=== PATIENT | male | born 1970 | race Two or more races ===

== ENCOUNTER 2016-12-07 18:18 | Inpatient (IN) | payer MEDICAID ==
[~2016-12-07] VITALS: Ht 170.2 cm; Wt 76.8 kg
[~2016-12-07 18:18] MED LIST: ARIP15TA6 PO; B-CO-5 PO; CALC667C PO; CINA30TA2 PO; FURO40TA4 PO; LIS5T PO; METO-169 PO; PAR20T PO; ZOLP10TA6 PO
[2016-12-07 19:38] LABS: Basophils # (auto) 0 uL; Basophils % (auto) 0.2 % (0.0-2.0); DEFINITIVE VIEW TRANSMISSION; Eosinophils # (auto) 0.1 uL; Eosinophils % (auto) 1.4 % (0.0-7.0); Hematocrit 25.5 % (41.0-53.0); Hemoglobin 8.1 g/dL (13.5-17.5); Lymphocytes # (auto) 0.7 uL; Mean Corpuscular Hemoglobin 29.6 pg (28.0-32.0); Mean Corpuscular Volume 92.7 fL (80.0-100.0); Mean Platelet Volume 6.7 fL (7.4-10.4); Monocytes # (auto) 0.4 uL; Monocytes % (auto) 4.5 % (0.0-12.0); Neutrophils # (auto) 7.7 uL; Neutrophils % (auto) 85.9 % (37.0-80.0); Platelet Count (auto) 453 10^3/uL (140-450); Red Cell Distribution Width 18.3 % (11.6-16.0)
[2016-12-07 20:03] LABS: Albumin 3.3 g/dL (3.4-5.0); Calcium 8.7 mg/dL (8.5-10.1); Potassium 4.4 mmol/L (3.5-5.1)
[2016-12-07 21:16] LABS: Bilirubin, Total 0.6 mg/dL (0.2-1.0); Total Protein 7.5 g/dL (6.4-8.2)
[2016-12-08 03:16] LABS: Urine Bilirubin Negative (Negative); Urine Blood TRACE /uL (Negative); Urine Color Yellow (Yellow); Urine Ketone Negative (Negative); Urine Nitrite Negative (Negative); Urine RBC 5 /hpf (0 - 3); Urine Urobilinogen Normal (Negative); Urine pH 8.5 (5.0-8.0)
[2016-12-08 03:17] LABS: Urine Glucose 1+ mg/dL (Normal)
[2016-12-08] MEDS ORDERED: cloNIDine HCL 0.1 MG TAB PO ONE (03:30)
[2016-12-08] MEDS ORDERED: SODIUM CHLORIDE 0.9% 1,000 ML IV ONE (03:30)
[2016-12-08 04:21] LABS: Partial Thromboplastin Time 29.9 sec (22.64-33.71); Prothrombin Time 12.3 sec (9.37-12.3)
[2016-12-08 04:23] LABS: INR 1.19 (0.9-1.15)
[2016-12-08] MEDS ORDERED: FUROSEMIDE 20 MG/2 ML VIAL IV ONE (04:30)
[2016-12-08 05:19] LABS: Temperature: 21.9 C (20.0-25.0)
[2016-12-08] MEDS ORDERED: ACETAMINOPHEN 325 MG TAB PO PRN (07:15)
[2016-12-08] MEDS ORDERED: ONDANSETRON HCL 4 MG/2 ML VIAL IV PRN (07:15)
[2016-12-08] MEDS: CALCIUM ACETATE 667 MG CAP PO SCH ×3 (09:16→18:24)
[2016-12-08] MEDS: METOPROLOL SUCCINATE XL 50 MG TAB PO SCH (10:00)
[2016-12-08] MEDS: LISINOPRIL 10 MG TAB PO SCH (10:00)
[2016-12-08] MEDS: PARoxetine 20 MG TAB PO SCH (10:00)
[2016-12-08] MEDS: ENOXAPARIN SOD 30 MG/0.3 ML SYRINGE SC SCH (10:00)
[2016-12-08] MEDS: FAMOTIDINE 20 MG TAB PO SCH ×2 (10:00→21:47)
[2016-12-08 17:12] VITALS: BP 141/89
[2016-12-08] MEDS: FUROSEMIDE 40 MG TAB PO SCH (18:25)
[2016-12-08 20:00] VITALS: BP 161/101
[2016-12-08] MEDS ORDERED: LOPERAMIDE 2 MG/10ml ORAL soln PO PRN (20:45)
[2016-12-08] MEDS ORDERED: traMADol HCL 50 MG TAB PO PRN (20:45)
[2016-12-08 22:00] VITALS: BP 161/101
[2016-12-09 05:00] VITALS: BP 159/103
[2016-12-09] MEDS: FUROSEMIDE 40 MG TAB PO SCH ×2 (05:41→18:04)
[2016-12-09 06:40] LABS: Basophils # (auto) 0 uL; Basophils % (auto) 0.3 % (0.0-2.0); DEFINITIVE VIEW TRANSMISSION; Eosinophils # (auto) 0 uL; Eosinophils % (auto) 0.2 % (0.0-7.0); Hematocrit 25.1 % (41.0-53.0); Lymphocytes # (auto) 0.7 uL; Lymphocytes % (auto) 7.8 % (10.0-50.0); Mean Corpuscular Hemoglobin 29.5 pg (28.0-32.0); Mean Corpuscular Hgb Conc. 31.8 g/dL (32.0-36.0); Mean Corpuscular Volume 92.9 fL (80.0-100.0); Mean Platelet Volume 7.2 fL (7.4-10.4); Monocytes # (auto) 0.6 uL; Monocytes % (auto) 6.6 % (0.0-12.0); Neutrophils # (auto) 7.1 uL; Neutrophils % (auto) 85.1 % (37.0-80.0); Platelet Count (auto) 347 10^3/uL (140-450); Red Cell Distribution Width 18.4 % (11.6-16.0); White Blood Cell 8.4 10^3/uL (4.4-10.8)
[2016-12-09] MEDS: CALCIUM ACETATE 667 MG CAP PO SCH ×4 (07:50→18:05)
[2016-12-09 09:00] VITALS: BP 180/108
[2016-12-09 09:06] LABS: Albumin 2.8 g/dL (3.4-5.0); BUN/Creatinine Ratio 7.1; Bilirubin, Total 0.9 mg/dL (0.2-1.0); Calcium 7.8 mg/dL (8.5-10.1); Total Protein 6.5 g/dL (6.4-8.2)
[2016-12-09 09:13] LABS: Potassium 6.3 mmol/L (3.5-5.1)
[2016-12-09] MEDS ORDERED: SODIUM POLYSTYRENE SULF 15GM/60ML SUSP PO ONE (09:30)
[2016-12-09] MEDS: ENOXAPARIN SOD 30 MG/0.3 ML SYRINGE SC SCH (09:37)
[2016-12-09] MEDS: PARoxetine 20 MG TAB PO SCH (09:38)
[2016-12-09] MEDS: METOPROLOL SUCCINATE XL 50 MG TAB PO SCH (09:38)
[2016-12-09] MEDS: FAMOTIDINE 20 MG TAB PO SCH (09:38)
[2016-12-09 13:00] VITALS: BP 182/113
[2016-12-09] MEDS ORDERED: EPOETIN ALFA 10,000 UNIT/1 ML VIAL SC ONE (16:45)
[2016-12-09 17:00] VITALS: BP 138/98
[2016-12-09 18:01] VITALS: BP 173/96
[2016-12-09 20:58] VITALS: BP 182/98
[2016-12-09] MEDS ORDERED: LABETALOL HCL 5 MG/ML 4ML SYRINGE IV ONE (23:20)
[2016-12-09] MEDS: LABETALOL HCL 5 MG/ML 4ML SYRINGE IV PRN (23:31)
[2016-12-10] MEDS: LABETALOL HCL 5 MG/ML 4ML SYRINGE IV PRN ×2 (03:57→06:30)
[2016-12-10 05:00] VITALS: BP 171/93
[2016-12-10] MEDS: FUROSEMIDE 40 MG TAB PO SCH (06:29)
[2016-12-10 07:14] LABS: DEFINITIVE VIEW TRANSMISSION; Hematocrit 24.6 % (41.0-53.0); Hemoglobin 7.9 g/dL (13.5-17.5); Mean Corpuscular Hemoglobin 29.6 pg (28.0-32.0); Mean Corpuscular Hgb Conc. 32.1 g/dL (32.0-36.0); Mean Corpuscular Volume 92.3 fL (80.0-100.0); Mean Platelet Volume 7.5 fL (7.4-10.4); Platelet Count (auto) 236 10^3/uL (140-450); Red Cell Distribution Width 18.9 % (11.6-16.0); White Blood Cell 8.4 10^3/uL (4.4-10.8)
[2016-12-10 07:21] LABS: Metamyelocytes % 0; Myelocytes % 0; Promyelocytes % 0; Reactive Lymphocytes 0
[2016-12-10 08:34] LABS: BUN/Creatinine Ratio 7.4; Calcium 8.6 mg/dL (8.5-10.1)
[2016-12-10] MEDS: CALCIUM ACETATE 667 MG CAP PO SCH ×2 (08:35→12:00)
[2016-12-10 09:04] LABS: Platelet Estimate Adequate
[2016-12-10] MEDS: FAMOTIDINE 20 MG TAB PO SCH (09:54)
[2016-12-10] MEDS: PARoxetine 20 MG TAB PO SCH (09:54)
[2016-12-10] MEDS: ENOXAPARIN SOD 30 MG/0.3 ML SYRINGE SC SCH (09:55)
[2016-12-10] MEDS: METOPROLOL SUCCINATE XL 50 MG TAB PO SCH (09:55)
[2016-12-10] MEDS: LISINOPRIL 10 MG TAB PO SCH (09:55)
[2016-12-10 10:16] VITALS: BP 156/90
[2016-12-10 10:46] VITALS: BP 156/90
== END 2016-12-10 11:15 | disposition home or self-care (01) | DRG 194 ==
LOC: ER 18:21 → OVERFLOW 18:22 → CENTRAL 12-08 09:24 → EAST 12-08 09:33 → CENTRAL 12-08 10:54
PROVIDERS: ADMIT Internal Medicine; ATTEND Internal Medicine
PROC: 5A1D00Z (ICD-10-PCS; principal; 2016-12-08)
DX: I13.2 Hypertensive heart and chronic kidney disease with heart failure and with stage 5 chronic kidney disease, or end stage renal disease (principal); E11.22 Type 2 diabetes mellitus with diabetic chronic kidney disease; N18.6 End stage renal disease; E44.0 Moderate protein-calorie malnutrition; I50.33 Acute on chronic diastolic (congestive) heart failure; Z99.2 Dependence on renal dialysis; D63.8 Anemia in other chronic diseases classified elsewhere; J20.9 Acute bronchitis, unspecified; E03.9 Hypothyroidism, unspecified; E78.5 Hyperlipidemia, unspecified; E87.5 Hyperkalemia; Z82.49 Family history of ischemic heart disease and other diseases of the circulatory system; Z83.3 Family history of diabetes mellitus; Z87.891 Personal history of nicotine dependence; Z68.26 Body mass index [BMI] 26.0-26.9, adult; F32.9 Major depressive disorder, single episode, unspecified; Z86.2 Personal history of diseases of the blood and blood-forming organs and certain disorders involving the immune mechanism; Z90.89 Acquired absence of other organs; Z84.1 Family history of disorders of kidney and ureter; Z83.49 Family history of other endocrine, nutritional and metabolic diseases; Z88.5 Allergy status to narcotic agent; Z88.0 Allergy status to penicillin; E87.70 Fluid overload, unspecified
CPT/HCPCS: 36415; 36600; 71020; 80048; 80053; 81001; 82805; 83605; 83735; 83880; 84484; 85007; 85025; 85027; 85379; 85610; 85730; 87040; 87081; 87493; 90935; 93005; 96361; 96374; J0885; J3490

== ENCOUNTER 2017-08-10 07:02 | Emergency (ER) | payer MEDICAID, OTHER ==
[~2017-08-10] VITALS: Ht 175.3 cm; Wt 78.5 kg
[2017-08-10] MEDS ORDERED: cloNIDine HCL 0.1 MG TAB PO ONE (08:00)
[2017-08-10 08:41] VITALS: BP 179/98
== END 2017-08-10 08:50 | disposition home or self-care (01) ==
LOC: ER 07:02
DX: I13.2 Hypertensive heart and chronic kidney disease with heart failure and with stage 5 chronic kidney disease, or end stage renal disease (principal); I50.9 Heart failure, unspecified; N18.6 End stage renal disease; E78.5 Hyperlipidemia, unspecified; E07.9 Disorder of thyroid, unspecified; Z82.49 Family history of ischemic heart disease and other diseases of the circulatory system; Z99.2 Dependence on renal dialysis; Z88.0 Allergy status to penicillin; Z88.6 Allergy status to analgesic agent

== ENCOUNTER 2017-09-15 03:33 | Emergency (ER) | payer OTHER ==
[~2017-09-15] VITALS: Ht 170.2 cm; Wt 78.5 kg
[2017-09-15] MEDS ORDERED: FUROSEMIDE 40 MG/4 ML VIAL IV ONE (04:00)
[2017-09-15] MEDS ORDERED: cloNIDine HCL 0.1 MG TAB PO ONE ×2 (04:00→18:45)
[2017-09-15 04:14] LABS: Basophils # (auto) 0 uL; Eosinophils # (auto) 0 uL; Eosinophils % (auto) 0.5 % (0.0-7.0); Lymphocytes # (auto) 0.5 uL; Mean Corpuscular Hemoglobin 34.7 pg (28.0-32.0); Monocytes # (auto) 0.5 uL
[2017-09-15 04:16] LABS: Basophils % (auto) 0.4 % (0.0-2.0); Hematocrit 27.6 % (41.0-53.0); Hemoglobin 9.5 g/dL (13.5-17.5); Lymphocytes % (auto) 5.6 % (10.0-50.0); Mean Corpuscular Hgb Conc. 34.3 g/dL (32.0-36.0); Mean Corpuscular Volume 101.2 fL (80.0-100.0); Mean Platelet Volume 7.2 fL (6.9-10.8); Neutrophils # (auto) 7.2 uL; Neutrophils % (auto) 87.5 % (37.0-80.0); Nucleated Red Blood Cells % 0.1 %; Platelet Count (auto) 247 10^3/uL (140-450); Red Cell Distribution Width 16.3 % (11.8-14.3); White Blood Cell 8.2 10^3/uL (4.4-10.8)
[2017-09-15 04:29] LABS: Albumin 3.1 g/dL (3.4-5.0); BUN/Creatinine Ratio 6.9; Calcium 8.9 mg/dL (8.5-10.1); Magnesium 2.4 mg/dL (1.6-2.6)
[2017-09-15] MEDS ORDERED: ONDANSETRON HCL 4 MG/2 ML VIAL IV ONE (04:30)
[2017-09-15] MEDS ORDERED: HYDROmorphone HCL 2 MG/ML VL IV ONE (04:30)
[2017-09-15 04:31] LABS: INR 1.04 (0.9-1.15); Partial Thromboplastin Time 28.3 sec (22.64-33.71); Prothrombin Time 11.3 sec (9.37-12.3)
[2017-09-15 04:37] LABS: Bilirubin, Total 1.1 mg/dL (0.2-1.0); Total Protein 6.9 g/dL (6.4-8.2)
[2017-09-15 06:09] LABS: Urine Bilirubin Negative (Negative); Urine Blood TRACE /uL (Negative); Urine Color Yellow (Yellow); Urine Glucose 1+ mg/dL (Normal); Urine Ketone Negative (Negative); Urine Mucus FEW (None Seen); Urine Nitrite Negative (Negative); Urine RBC 3 /hpf (0 - 3); Urine Urobilinogen Normal (Negative); Urine pH 8.5 (5.0-8.0)
[2017-09-15] MEDS ORDERED: LABETALOL HCL 200 MG TAB PO ONE (06:30)
[2017-09-15 06:39] LABS: B-Type Natriuretic Peptide 3995.09 pg/mL (0-100)
[2017-09-15 06:46] LABS: Temperature: 21.1 C (20.0-25.0)
[2017-09-15] MEDS ORDERED: EPOETIN ALFA 2,000 UNIT/1 ML VIAL IV ONE (15:15)
[2017-09-15] MEDS ORDERED: EPOETIN ALFA 3,000 UNIT/1 ML VIAL IV ONE (15:15)
[2017-09-15] MEDS ORDERED: EPOETIN ALFA 4,000 UNIT/ML VL IV ONE (15:15)
[2017-09-15] MEDS ORDERED: hydrALAZINE HCL 20 MG/ML VL ONE (18:39)
[2017-09-15] MEDS ORDERED: hydrALAZINE HCL 20 MG/ML VL IV ONE (18:45)
[2017-09-15 19:30] VITALS: BP 174/81
== END 2017-09-15 20:22 | disposition home or self-care (01) ==
LOC: ER 03:35
DX: I13.2 Hypertensive heart and chronic kidney disease with heart failure and with stage 5 chronic kidney disease, or end stage renal disease (principal); I50.9 Heart failure, unspecified; N18.6 End stage renal disease; J90 Pleural effusion, not elsewhere classified; R74.8 Abnormal levels of other serum enzymes; R18.8 Other ascites; E78.5 Hyperlipidemia, unspecified; E07.9 Disorder of thyroid, unspecified; Z88.0 Allergy status to penicillin; Z99.2 Dependence on renal dialysis; Z88.6 Allergy status to analgesic agent; Z79.899 Other long term (current) drug therapy
CPT/HCPCS: 36415; 71010; 74176; 78226; 80053; 81001; 82150; 83690; 83735; 83880; 84484; 85025; 85610; 85730; 87040; 93005; 94761; 96374; 96375; 99285; A9537; J0360; J0885; J1940; Q4081; 90935

== ENCOUNTER 2017-11-12 05:29 | Inpatient (IN) | payer MEDICAID, OTHER ==
[~2017-11-12] VITALS: Ht 172.7 cm; Wt 77.1 kg
[2017-11-12] MEDS ORDERED: cloNIDine HCL 0.1 MG TAB PO ONE (06:00)
[2017-11-12 06:11] LABS: Basophils # (auto) 0.1 uL; Basophils % (auto) 1.2 % (0.0-2.0); Eosinophils # (auto) 0.2 uL; Eosinophils % (auto) 3.4 % (0.0-7.0); Hematocrit 34.2 % (41.0-53.0); Hemoglobin 11.7 g/dL (13.5-17.5); Lymphocytes # (auto) 0.8 uL; Lymphocytes % (auto) 15.1 % (10.0-50.0); Mean Corpuscular Hemoglobin 33.5 pg (28.0-32.0); Mean Corpuscular Hgb Conc. 34.2 g/dL (32.0-36.0); Mean Corpuscular Volume 97.8 fL (80.0-100.0); Monocytes # (auto) 0.3 uL; Neutrophils % (auto) 75.3 % (37.0-80.0); Platelet Count (auto) 259 10^3/uL (140-450); Red Cell Distribution Width 15.4 % (11.8-14.3); White Blood Cell 5.3 10^3/uL (4.4-10.8)
[2017-11-12 06:34] LABS: Albumin 3.9 g/dL (3.4-5.0); BUN/Creatinine Ratio 6.5; Bilirubin, Total 1.2 mg/dL (0.2-1.0); Calcium 8.7 mg/dL (8.5-10.1); Magnesium 2.8 mg/dL (1.6-2.6); Potassium 4.3 mmol/L (3.5-5.1); Total Protein 8.1 g/dL (6.4-8.2)
[2017-11-12] MEDS ORDERED: FUROSEMIDE 40 MG/4 ML VIAL IV ONE (07:00)
[2017-11-12] MEDS ORDERED: LABETALOL HCL 5 MG/ML ML 20ML VIAL IV ONE (07:00)
[2017-11-12] MEDS ORDERED: ENOXAPARIN SOD 80 MG/0.8ML SYRINGE SC ONE (08:00)
[2017-11-12] MEDS ORDERED: MORPHINE SULF INJ 2 MG/ML SYRINGE 1ML IV PRN ×2 (08:30)
[2017-11-12] MEDS ORDERED: PROMETHAZINE HCL 25 MG/ML 1ML IV PRN (08:30)
[2017-11-12] MEDS ORDERED: HYDROcodone-ACET 5/325MG TAB PO PRN (08:30)
[2017-11-12] MEDS ORDERED: LABETALOL HCL 5 MG/ML ML 20ML VIAL IV PRN ×3 (08:30)
[2017-11-12] MEDS ORDERED: LACTULOSE 20Gm/30ML SOLN PO PRN (08:30)
[2017-11-12] MEDS ORDERED: NITROGLYCERIN 0.4 MG SL TAB SL PRN (08:30)
[2017-11-12] MEDS ORDERED: LORazepam 0.5 MG TAB PO PRN (08:30)
[2017-11-12] MEDS ORDERED: ACETAMINOPHEN 500 MG TAB PO PRN (08:30)
[2017-11-12] MEDS ORDERED: IOHEXOL 350 MG/ML 100ML IJ ONE (08:52)
[2017-11-12] MEDS ORDERED: NITROGLYCERIN 0.2MG/HR TOPICAL PATCH TD SCH (10:00)
[2017-11-12] MEDS ORDERED: PARoxetine 20 MG TAB PO SCH (10:00)
[2017-11-12] MEDS ORDERED: LISINOPRIL 5 MG TAB PO SCH (10:00)
[2017-11-12] MEDS ORDERED: B-COMPLEX W/ C & FOLIC ACID(NEPHROVITE TAB) PO SCH (10:00)
[2017-11-12] MEDS: CINACALCET HYDROCHLORIDE 30 MG TAB PO SCH ×2 (10:00→11:41)
[2017-11-12] MEDS ORDERED: FUROSEMIDE 40 MG/4 ML VIAL IV SCH (10:00)
[2017-11-12] MEDS ORDERED: METOPROLOL SUCCINATE XL 50 MG TAB PO SCH (10:00)
[2017-11-12] MEDS ORDERED: PANTOPRAZOLE 40 MG TAB PO SCH (10:00)
[2017-11-12] MEDS ORDERED: ASPirin 81 mg TAB PO SCH (10:00)
[2017-11-12] MEDS ORDERED: CINACALCET HYDROCHLORIDE PO SCH (10:00)
[2017-11-12] MEDS ORDERED: ENOXAPARIN SOD 30 MG/0.3 ML SYRINGE SC SCH (10:00)
[2017-11-12] MEDS ORDERED: PATIENTS OWN MEDICATION (B-Complex W/ C & Folic Acid (Rena-Vite) 1 TAB) PO SCH (10:00)
[2017-11-12 10:35] VITALS: BP 168/112
[2017-11-12] MEDS ORDERED: CALCIUM ACETATE 667 MG CAP PO SCH (12:00)
[2017-11-12] MEDS ORDERED: SODIUM CHLOR 0.9% PF (SALINE LOCK) 10ML VIAL IV SCH (14:00)
[2017-11-12] MEDS ORDERED: ZOLPIDEM TARTRATE 10 MG PO SCH (22:00)
[2017-11-12] MEDS ORDERED: ATORVASTATIN 20 MG TAB PO SCH (22:00)
[2017-11-12] MEDS ORDERED: ZOLPIDEM TARTRATE 5 MG TAB PO SCH (22:00)
== END 2017-11-12 13:51 | disposition left against medical advice (07) | DRG 194 ==
LOC: ER 05:29 → TELE 05:30
PROVIDERS: ADMIT Internal Medicine; ATTEND Internal Medicine
DX: I13.2 Hypertensive heart and chronic kidney disease with heart failure and with stage 5 chronic kidney disease, or end stage renal disease (principal); J18.9 Pneumonia, unspecified organism; N18.6 End stage renal disease; I50.23 Acute on chronic systolic (congestive) heart failure; E03.9 Hypothyroidism, unspecified; D63.8 Anemia in other chronic diseases classified elsewhere; E78.5 Hyperlipidemia, unspecified; Z53.21 Procedure and treatment not carried out due to patient leaving prior to being seen by health care provider; F32.9 Major depressive disorder, single episode, unspecified; Z82.49 Family history of ischemic heart disease and other diseases of the circulatory system; Z83.3 Family history of diabetes mellitus; Z99.2 Dependence on renal dialysis; Z90.49 Acquired absence of other specified parts of digestive tract; Z88.5 Allergy status to narcotic agent; Z88.0 Allergy status to penicillin
CPT/HCPCS: 36415; 36600; 71045; 71275; 80053; 82550; 82805; 83735; 83880; 84443; 84484; 85025; 85379; 85652; 86141; 93005; 96372; 96374; 96375

== ENCOUNTER 2017-12-07 17:01 | Emergency (ER) | payer OTHER ==
[~2017-12-07] VITALS: Ht 172.7 cm; Wt 79.4 kg
[2017-12-07 17:26] VITALS: BP 199/113
== END 2017-12-07 19:40 | disposition left against medical advice (07) ==
LOC: ER 17:08
DX: R07.89 Other chest pain (principal); I13.2 Hypertensive heart and chronic kidney disease with heart failure and with stage 5 chronic kidney disease, or end stage renal disease; I50.9 Heart failure, unspecified; N18.6 End stage renal disease; M25.511 Pain in right shoulder; Z99.2 Dependence on renal dialysis; Z88.0 Allergy status to penicillin; Z88.6 Allergy status to analgesic agent; E78.5 Hyperlipidemia, unspecified; E07.9 Disorder of thyroid, unspecified; Z90.49 Acquired absence of other specified parts of digestive tract
CPT/HCPCS: 71046; 73030; 93005

== ENCOUNTER 2018-04-15 19:55 | Emergency (ER) | payer OTHER ==
[~2018-04-15] VITALS: Ht 170.2 cm; Wt 80.3 kg
[2018-04-15 20:08] VITALS: BP 107/80
[2018-04-15 21:12] LABS: Basophils # (auto) 0.1 uL; Basophils % (auto) 0.6 % (0.0-2.0); Eosinophils # (auto) 0.1 uL; Eosinophils % (auto) 0.8 % (0.0-7.0); Mean Corpuscular Hemoglobin 34.7 pg (28.0-32.0); Neutrophils # (auto) 8.3 uL
[2018-04-15 21:14] LABS: Hematocrit 41.1 % (41.0-53.0); Hemoglobin 14.4 g/dL (13.5-17.5); Lymphocytes % (auto) 9.4 % (10.0-50.0); Mean Corpuscular Hgb Conc. 35.1 g/dL (32.0-36.0); Mean Corpuscular Volume 98.9 fL (80.0-100.0); Monocytes # (auto) 0.8 uL; Neutrophils % (auto) 81.2 % (37.0-80.0); Nucleated Red Blood Cells % 0.5 %; Platelet Count (auto) 341 10^3/uL (140-450); Red Blood Cells 4.16 10^6/uL (4.5-5.90); Red Cell Distribution Width 14.3 % (11.8-14.3); White Blood Cell 10.3 10^3/uL (4.4-10.8)
[2018-04-15 21:37] LABS: Albumin 4.2 g/dL (3.4-5.0); BUN/Creatinine Ratio 4.3; Bilirubin, Total 0.4 mg/dL (0.2-1.0); Calcium 8.8 mg/dL (8.5-10.1); Magnesium 3.1 mg/dL (1.6-2.6); Potassium 3.9 mmol/L (3.5-5.1); Total Protein 9.4 g/dL (6.4-8.2)
== END 2018-04-16 00:28 | disposition left against medical advice (07) ==
LOC: ER 19:55
DX: R10.9 Unspecified abdominal pain (principal); Z53.21 Procedure and treatment not carried out due to patient leaving prior to being seen by health care provider
CPT/HCPCS: 36415; 71045; 80053; 83690; 83735; 85025; 93005

== ENCOUNTER 2018-06-28 22:35 | Inpatient (IN) | payer OTHER ==
[~2018-06-28] VITALS: Ht 172.7 cm; Wt 81.1 kg
[2018-06-28 23:11] LABS: Basophils # (auto) 0.1 uL; Lymphocytes # (auto) 0.9 uL; Red Cell Distribution Width 14.6 % (11.8-14.3)
[2018-06-28 23:13] LABS: Basophils % (auto) 0.8 % (0.0-2.0); Eosinophils # (auto) 0.2 uL; Eosinophils % (auto) 2.4 % (0.0-7.0); Hematocrit 31.1 % (41.0-53.0); Hemoglobin 10.7 g/dL (13.5-17.5); Lymphocytes % (auto) 13.5 % (10.0-50.0); Mean Corpuscular Hemoglobin 34.7 pg (28.0-32.0); Mean Corpuscular Hgb Conc. 34.4 g/dL (32.0-36.0); Mean Corpuscular Volume 100.8 fL (80.0-100.0); Monocytes # (auto) 0.3 uL; Monocytes % (auto) 4.9 % (0.0-12.0); Neutrophils # (auto) 5.1 uL; Neutrophils % (auto) 78.4 % (37.0-80.0); Platelet Count (auto) 229 10^3/uL (140-450); Red Blood Cells 3.08 10^6/uL (4.5-5.90); White Blood Cell 6.6 10^3/uL (4.4-10.8)
[2018-06-28 23:25] LABS: INR 0.97 (0.9-1.15); Partial Thromboplastin Time 26.7 sec (23.78-33.04); Prothrombin Time 10.4 sec (9.27-12.13)
[2018-06-28 23:34] LABS: Albumin 3.3 g/dL (3.4-5.0); Calcium 8.2 mg/dL (8.5-10.1); Potassium 4.4 mmol/L (3.5-5.1)
[2018-06-28] MEDS ORDERED: LABETALOL HCL 5 MG/ML ML 20ML VIAL IV ONE ×2 (23:37→23:45)
[2018-06-28 23:43] LABS: BUN/Creatinine Ratio 4.2; Bilirubin, Total 0.8 mg/dL (0.2-1.0); Total Protein 6.7 g/dL (6.4-8.2)
[2018-06-28] MEDS ORDERED: MORPHINE SULFATE 4 MG/ML SYR/VIAL IV ONE (23:45)
[2018-06-28] MEDS ORDERED: hydrALAZINE HCL 20 MG/ML VL IV ONE (23:45)
[2018-06-28] MEDS ORDERED: NITROGLYCERIN 0.4 MG SL TAB SL ONE (23:45)
[2018-06-28] MEDS ORDERED: ASPirin-EC 325mg tab PO ONE (23:45)
[2018-06-29] MEDS ORDERED: ZOLPIDEM TARTRATE 5 MG TAB PO ONE (01:45)
[2018-06-29] MEDS ORDERED: FUROSEMIDE 100 MG/10ML VIAL IV ONE (01:45)
[2018-06-29] MEDS ORDERED: diphenhdrAMINE HCL 50 MG/1 ML VL IV ONE (02:00)
[2018-06-29] MEDS ORDERED: LABETALOL HCL 5 MG/ML ML 20ML VIAL IV ONE (05:45)
[2018-06-29] MEDS ORDERED: cloNIDine HCL 0.1 MG TAB PO ONE (05:45)
[2018-06-29] MEDS ORDERED: hydrALAZINE HCL 20 MG/ML VL IV ONE (05:45)
[2018-06-29] MEDS ORDERED: ZOLPIDEM TARTRATE 5 MG TAB PO PRN (07:45)
[2018-06-29] MEDS ORDERED: cloNIDine HCL 0.1 MG TAB PO PRN (07:45)
[2018-06-29] MEDS ORDERED: ONDANSETRON HCL 4 MG/2 ML VIAL IV PRN (07:45)
[2018-06-29] MEDS ORDERED: ACETAMINOPHEN 500 MG TAB PO PRN (07:45)
[2018-06-29] MEDS ORDERED: diphenhdrAMINE HCL 25 MG CAP PO ONE (10:15)
[2018-06-29] MEDS: ASPirin-EC 81 mg tab PO SCH (10:17)
[2018-06-29] MEDS: PARoxetine 20 MG TAB PO SCH (10:17)
[2018-06-29] MEDS: B-COMPLEX W/ C & FOLIC ACID(NEPHROVITE TAB) PO SCH (10:18)
[2018-06-29] MEDS: METOPROLOL SUCCINATE XL 50 MG TAB PO SCH (10:18)
[2018-06-29] MEDS ORDERED: FAMOTIDINE (10MG/ML) 2ML VL IV ONE (15:30)
[2018-06-29 20:45] VITALS: BP 148/77
[2018-06-30 05:00] VITALS: BP 161/80
[2018-06-30 08:30] VITALS: BP 151/78
[2018-06-30] MEDS: METOPROLOL SUCCINATE XL 50 MG TAB PO SCH (09:59)
[2018-06-30] MEDS: B-COMPLEX W/ C & FOLIC ACID(NEPHROVITE TAB) PO SCH (09:59)
[2018-06-30] MEDS: ASPirin-EC 81 mg tab PO SCH (10:00)
[2018-06-30] MEDS: PARoxetine 20 MG TAB PO SCH (10:00)
[2018-06-30 10:58] LABS: Anion Gap 9 (5-15); BUN/Creatinine Ratio 4.1; Blood Urea Nitrogen 39 mg/dL (7-18); Calcium 8.2 mg/dL (8.5-10.1); Carbon Dioxide 31 mmol/L (21-32); Chloride 97 mmol/L (98-107); GFR African American 8 mL/min; GFR Non-African American 6 mL/min; Glucose 103 mg/dL (74-106); Potassium 4.7 mmol/L (3.5-5.1); Sodium 137 mmol/L (136-145)
[2018-06-30 11:57] VITALS: BP 151/78
== END 2018-06-30 12:56 | disposition home or self-care (01) | DRG 194 ==
LOC: EDBD 22:35 → ER 22:47 → TELE 22:48 → TELE-EAST 06-29 20:41
PROVIDERS: ADMIT Nurse Practitioner Family; ATTEND Internal Medicine
PROC: 5A1D70Z Performance of Urinary Filtration, Intermittent, Less than 6 Hours Per Day (ICD-10-PCS; principal; 2018-06-29)
DX: I13.2 Hypertensive heart and chronic kidney disease with heart failure and with stage 5 chronic kidney disease, or end stage renal disease (principal); N18.6 End stage renal disease; F20.9 Schizophrenia, unspecified; I16.1 Hypertensive emergency; I50.9 Heart failure, unspecified; E03.9 Hypothyroidism, unspecified; E78.5 Hyperlipidemia, unspecified; F31.9 Bipolar disorder, unspecified; Z82.49 Family history of ischemic heart disease and other diseases of the circulatory system; Z99.2 Dependence on renal dialysis; Z83.3 Family history of diabetes mellitus; Z88.0 Allergy status to penicillin; Z88.5 Allergy status to narcotic agent
CPT/HCPCS: 36415; 71045; 80048; 80053; 83880; 84484; 85025; 85610; 85730; 87081; 90935; 93005; 94761; 96374; 96375; 96376; 99291; J3490

== ENCOUNTER 2018-07-15 00:54 | Emergency (ER) | payer OTHER ==
[~2018-07-15] VITALS: Ht 172.7 cm; Wt 82.1 kg
[~2018-07-15 00:54] MED LIST changes: -PAR20T PO
[2018-07-15 01:32] LABS: Basophils # (auto) 0.1 uL; Basophils % (auto) 1.3 % (0.0-2.0); Eosinophils # (auto) 0.2 uL; Eosinophils % (auto) 3.7 % (0.0-7.0); Hematocrit 30.1 % (41.0-53.0); Hemoglobin 10.3 g/dL (13.5-17.5); Lymphocytes % (auto) 21.4 % (10.0-50.0); Mean Corpuscular Hemoglobin 33.9 pg (28.0-32.0); Mean Corpuscular Hgb Conc. 34.2 g/dL (32.0-36.0); Mean Corpuscular Volume 99.2 fL (80.0-100.0); Monocytes # (auto) 0.5 uL; Monocytes % (auto) 9.7 % (0.0-12.0); Neutrophils % (auto) 63.9 % (37.0-80.0); Nucleated Red Blood Cells % 0.1 %; Platelet Count (auto) 178 10^3/uL (140-450); Red Blood Cells 3.03 10^6/uL (4.5-5.90); Red Cell Distribution Width 14.7 % (11.8-14.3); White Blood Cell 4.8 10^3/uL (4.4-10.8)
[2018-07-15 01:46] LABS: INR 0.96 (0.9-1.15); Partial Thromboplastin Time 28.2 sec (23.78-33.04); Prothrombin Time 10.3 sec (9.27-12.13)
[2018-07-15 01:51] LABS: Albumin 3.2 g/dL (3.4-5.0); Anion Gap 13 (5-15); Blood Urea Nitrogen 66 mg/dL (7-18); Calcium 7.5 mg/dL (8.5-10.1); Carbon Dioxide 25 mmol/L (21-32); Chloride 100 mmol/L (98-107); Glucose 89 mg/dL (74-106); Magnesium 2.6 mg/dL (1.6-2.6); Potassium 4.8 mmol/L (3.5-5.1); Sodium 138 mmol/L (136-145)
[2018-07-15 02:00] LABS: Alanine Aminotransferase 12 U/L (16-61); Alkaline Phosphatase 62 U/L (45-117); Aspartate Aminotransferase < 3 U/L (15-37); BUN/Creatinine Ratio 6.3; Bilirubin, Total 0.4 mg/dL (0.2-1.0); GFR African American 7 mL/min; GFR Non-African American 6 mL/min; Total Protein 6.6 g/dL (6.4-8.2)
[2018-07-15] MEDS ORDERED: diphenhdrAMINE HCL 25 MG CAP PO ONE (05:30)
[2018-07-15] MEDS ORDERED: cloNIDine HCL 0.1 MG TAB PO ONE ×2 (05:45→08:15)
[2018-07-15 06:57] VITALS: BP 170/101
[2018-07-15] MEDS ORDERED: cloNIDine HCL 0.1 MG TAB ONE (08:18)
== END 2018-07-15 10:19 | disposition home or self-care (01) ==
LOC: EDBD 00:54 → ER 01:00
DX: R06.02 Shortness of breath (principal); I13.2 Hypertensive heart and chronic kidney disease with heart failure and with stage 5 chronic kidney disease, or end stage renal disease; N18.6 End stage renal disease; R79.1 Abnormal coagulation profile; I50.9 Heart failure, unspecified; E78.5 Hyperlipidemia, unspecified; E07.9 Disorder of thyroid, unspecified; Z90.49 Acquired absence of other specified parts of digestive tract
CPT/HCPCS: 36415; 71045; 80053; 83735; 83880; 84484; 85025; 85379; 85610; 85730; 93005; 94761

== ENCOUNTER 2018-08-05 01:24 | Emergency (ER) | payer MEDICAID, OTHER ==
[~2018-08-05] VITALS: Ht 170.2 cm; Wt 86.2 kg
[2018-08-05 01:50] VITALS: BP 214/122
[2018-08-05] MEDS ORDERED: cloNIDine 0.2 mg/24hr 7DAY PATCH TD ONE (02:00)
[2018-08-05] MEDS ORDERED: cloNIDine HCL 0.1 MG TAB ONE (02:08)
[2018-08-05] MEDS ORDERED: cloNIDine HCL 0.1 MG TAB PO ONE (02:15)
== END 2018-08-05 06:16 | disposition home or self-care (01) ==
LOC: EDBD 01:24 → ER 01:24
DX: G47.00 Insomnia, unspecified (principal); Z53.21 Procedure and treatment not carried out due to patient leaving prior to being seen by health care provider

== ENCOUNTER 2018-08-09 18:10 | Emergency (ER) | payer MEDICAID ==
[~2018-08-09] VITALS: Ht 172.7 cm; Wt 81.6 kg
[2018-08-09 18:57] LABS: Basophils # (auto) 0.1 uL; Basophils % (auto) 0.9 % (0.0-2.0); Eosinophils # (auto) 0.2 uL; Eosinophils % (auto) 2.8 % (0.0-7.0); Hematocrit 32.6 % (41.0-53.0); Hemoglobin 11.5 g/dL (13.5-17.5); Lymphocytes # (auto) 0.7 uL; Lymphocytes % (auto) 10.3 % (10.0-50.0); Mean Corpuscular Hemoglobin 34.3 pg (28.0-32.0); Mean Corpuscular Hgb Conc. 35.1 g/dL (32.0-36.0); Mean Corpuscular Volume 97.5 fL (80.0-100.0); Monocytes # (auto) 0.4 uL; Monocytes % (auto) 5.5 % (0.0-12.0); Neutrophils # (auto) 5.3 uL; Neutrophils % (auto) 80.5 % (37.0-80.0); Platelet Count (auto) 212 10^3/uL (140-450); Red Blood Cells 3.35 10^6/uL (4.5-5.90); Red Cell Distribution Width 14.3 % (11.8-14.3); White Blood Cell 6.6 10^3/uL (4.4-10.8)
[2018-08-09 19:24] LABS: Calcium 8.5 mg/dL (8.5-10.1); Potassium 5.3 mmol/L (3.5-5.1)
[2018-08-09 19:28] LABS: Albumin 3.6 g/dL (3.4-5.0); BUN/Creatinine Ratio 5.5
[2018-08-09 19:31] LABS: Bilirubin, Total 0.8 mg/dL (0.2-1.0); Total Protein 7.8 g/dL (6.4-8.2)
[2018-08-09] MEDS ORDERED: ONDANSETRON HCL 4 MG/2 ML VIAL IV ONE (19:45)
[2018-08-09] MEDS ORDERED: MORPHINE SULFATE 10 MG/ML INJ 1ML SDV IV ONE (19:45)
[2018-08-09] MEDS ORDERED: SODIUM CHLORIDE 0.9% 1,000 ML IV ONE (19:45)
[2018-08-09] MEDS ORDERED: ONDANSETRON HCL 4 MG/2 ML VIAL ONE (20:56)
[2018-08-09] MEDS ORDERED: MORPHINE SULF INJ 2 MG/ML SYRINGE 1ML ONE (20:57)
[2018-08-09] MEDS ORDERED: MORPHINE SULFATE 4 MG/ML SYR/VIAL ONE (20:57)
[2018-08-09 21:01] VITALS: BP 183/111
== END 2018-08-09 23:09 | disposition home or self-care (01) ==
LOC: ER 18:10
DX: I13.2 Hypertensive heart and chronic kidney disease with heart failure and with stage 5 chronic kidney disease, or end stage renal disease (principal); N18.6 End stage renal disease; I50.9 Heart failure, unspecified; R11.2 Nausea with vomiting, unspecified; K59.00 Constipation, unspecified; E07.9 Disorder of thyroid, unspecified; Z88.5 Allergy status to narcotic agent; Z88.0 Allergy status to penicillin; Z79.899 Other long term (current) drug therapy; Z90.49 Acquired absence of other specified parts of digestive tract
CPT/HCPCS: 36415; 71046; 71250; 74176; 80053; 83880; 84443; 84484; 85025; 93005; 94761; 96374; 96375; 99291; J2270; J2405

== ENCOUNTER 2018-08-13 16:44 | Emergency (ER) | payer MEDICAID ==
[~2018-08-13] VITALS: Ht 172.7 cm; Wt 81.6 kg
[2018-08-13 17:01] VITALS: BP 154/85
== END 2018-08-13 19:30 | disposition left against medical advice (07) ==
LOC: ER 17:02
DX: K59.00 Constipation, unspecified (principal); Z53.21 Procedure and treatment not carried out due to patient leaving prior to being seen by health care provider

== ENCOUNTER 2018-08-14 14:44 | Emergency (ER) | payer MEDICAID ==
[2018-08-14 16:07] LABS: Basophils # (auto) 0 uL; Basophils % (auto) 1.1 % (0.0-2.0); Eosinophils # (auto) 0.1 uL; Eosinophils % (auto) 3.5 % (0.0-7.0); Hematocrit 34.7 % (41.0-53.0); Hemoglobin 11.9 g/dL (13.5-17.5); Lymphocytes # (auto) 0.6 uL; Lymphocytes % (auto) 15.9 % (10.0-50.0); Mean Corpuscular Hemoglobin 33.8 pg (28.0-32.0); Mean Corpuscular Hgb Conc. 34.3 g/dL (32.0-36.0); Mean Corpuscular Volume 98.5 fL (80.0-100.0); Monocytes # (auto) 0.4 uL; Monocytes % (auto) 9.6 % (0.0-12.0); Neutrophils # (auto) 2.7 uL; Neutrophils % (auto) 69.9 % (37.0-80.0); Nucleated Red Blood Cells % 0.1 %; Platelet Count (auto) 279 10^3/uL (140-450); Red Blood Cells 3.53 10^6/uL (4.5-5.90); Red Cell Distribution Width 14.2 % (11.8-14.3); White Blood Cell 3.9 10^3/uL (4.4-10.8)
[2018-08-14 16:20] LABS: Calcium 9.3 mg/dL (8.5-10.1); Potassium 3.5 mmol/L (3.5-5.1)
[2018-08-14 16:23] LABS: BUN/Creatinine Ratio 3.9; Bilirubin, Total 0.8 mg/dL (0.2-1.0); Total Protein 8.6 g/dL (6.4-8.2)
[2018-08-14 17:01] VITALS: BP 187/104
== END 2018-08-14 17:55 | disposition left against medical advice (07) ==
LOC: ER 14:44 → EDBD 14:44 → ER 17:55
DX: I13.2 Hypertensive heart and chronic kidney disease with heart failure and with stage 5 chronic kidney disease, or end stage renal disease (principal); N18.6 End stage renal disease; I50.9 Heart failure, unspecified; D64.89 Other specified anemias; K59.01 Slow transit constipation; R09.89 Other specified symptoms and signs involving the circulatory and respiratory systems; E07.89 Other specified disorders of thyroid; Z88.0 Allergy status to penicillin; Z88.6 Allergy status to analgesic agent; Z53.29 Procedure and treatment not carried out because of patient's decision for other reasons
CPT/HCPCS: 36415; 74022; 80053; 85025; 93005

== ENCOUNTER 2018-10-12 04:47 | Emergency (ER) | payer MEDICAID ==
[~2018-10-12] VITALS: Ht 175.3 cm; Wt 82.1 kg
[2018-10-12 06:50] LABS: Basophils # (auto) 0.1 uL; Eosinophils # (auto) 0.1 uL; Monocytes # (auto) 0.5 uL; Red Cell Distribution Width 16.6 % (11.8-14.3)
[2018-10-12 06:52] LABS: Basophils % (auto) 0.8 % (0.0-2.0); Hematocrit 23.3 % (41.0-53.0); Hemoglobin 7.9 g/dL (13.5-17.5); Lymphocytes # (auto) 0.6 uL; Lymphocytes % (auto) 6.7 % (10.0-50.0); Mean Corpuscular Hgb Conc. 33.9 g/dL (32.0-36.0); Mean Corpuscular Volume 100.2 fL (80.0-100.0); Monocytes % (auto) 6.6 % (0.0-12.0); Neutrophils % (auto) 84.9 % (37.0-80.0); Platelet Count (auto) 244 10^3/uL (140-450); Red Blood Cells 2.32 10^6/uL (4.5-5.90); White Blood Cell 8.3 10^3/uL (4.4-10.8)
[2018-10-12 07:00] LABS: Albumin 3.7 g/dL (3.4-5.0); Magnesium 2.6 mg/dL (1.6-2.6); Potassium 5.1 mmol/L (3.5-5.1)
[2018-10-12 07:09] LABS: BUN/Creatinine Ratio 4.8; Bilirubin, Total 1.2 mg/dL (0.2-1.0); Total Protein 7.5 g/dL (6.4-8.2)
[2018-10-12 07:41] VITALS: BP 148/86
[2018-10-12] MEDS ORDERED: LEVOFLOXACIN 500 MG TAB PO ONE (07:45)
== END 2018-10-12 08:10 | disposition home or self-care (01) ==
LOC: ER 04:49
DX: I50.43 Acute on chronic combined systolic (congestive) and diastolic (congestive) heart failure (principal); I13.2 Hypertensive heart and chronic kidney disease with heart failure and with stage 5 chronic kidney disease, or end stage renal disease; N18.6 End stage renal disease; I50.9 Heart failure, unspecified; Z99.2 Dependence on renal dialysis; Z86.2 Personal history of diseases of the blood and blood-forming organs and certain disorders involving the immune mechanism; E78.00 Pure hypercholesterolemia, unspecified
CPT/HCPCS: 36415; 36600; 71045; 80053; 82805; 83735; 83880; 84484; 85025

== ENCOUNTER 2018-10-18 08:27 | Emergency (ER) | payer MEDICAID ==
[~2018-10-18] VITALS: Ht 175.3 cm; Wt 82.1 kg
[2018-10-18 08:35] VITALS: BP 196/111
== END 2018-10-18 08:45 | disposition left against medical advice (07) ==
LOC: ER 08:27
DX: I13.2 Hypertensive heart and chronic kidney disease with heart failure and with stage 5 chronic kidney disease, or end stage renal disease (principal); I50.41 Acute combined systolic (congestive) and diastolic (congestive) heart failure; N18.6 End stage renal disease; Z99.2 Dependence on renal dialysis; E07.89 Other specified disorders of thyroid; Z90.89 Acquired absence of other organs
CPT/HCPCS: 93005

== ENCOUNTER 2019-08-13 22:44 | Inpatient (IN) | payer MEDICAID ==
[~2019-08-13] VITALS: Ht 167.6 cm; Wt 85.0 kg
[2019-08-14 01:08] LABS: Basophils # (auto) 0.1 uL; Basophils % (auto) 1.3 % (0.0-2.0); Eosinophils # (auto) 0.2 uL; Eosinophils % (auto) 3.4 % (0.0-7.0); Hematocrit 30.2 % (41.0-53.0); Hemoglobin 10.2 g/dL (13.5-17.5); Lymphocytes # (auto) 0.6 uL; Lymphocytes % (auto) 10.5 % (10.0-50.0); Mean Corpuscular Hgb Conc. 33.8 g/dL (32.0-36.0); Mean Corpuscular Volume 97.5 fL (80.0-100.0); Monocytes # (auto) 0.6 uL; Monocytes % (auto) 9.5 % (0.0-12.0); Neutrophils # (auto) 4.4 uL; Neutrophils % (auto) 75.3 % (37.0-80.0); Platelet Count (auto) 184 10^3/uL (140-450); Red Cell Distribution Width 16.1 % (11.8-14.3); White Blood Cell 5.8 10^3/uL (4.4-10.8)
[2019-08-14 01:26] LABS: Alanine Aminotransferase 14 U/L (16-61); Albumin 3.4 g/dL (3.4-5.0); Amylase 76 U/L (25-115); Anion Gap 13 (5-15); BUN/Creatinine Ratio 5.1; Blood Urea Nitrogen 49 mg/dL (7-18); Calcium 8.8 mg/dL (8.5-10.1); Carbon Dioxide 27 mmol/L (21-32); Chloride 96 mmol/L (98-107); GFR African American 8 mL/min; GFR Non-African American 6 mL/min; Glucose 101 mg/dL (74-106); Lipase 208 U/L (73-393); Potassium 4.5 mmol/L (3.5-5.1); Sodium 136 mmol/L (136-145)
[2019-08-14 01:32] LABS: Alkaline Phosphatase 181 U/L (45-117); Aspartate Aminotransferase 14 U/L (15-37); Bilirubin, Total 0.8 mg/dL (0.2-1.0); Total Protein 7.8 g/dL (6.4-8.2)
[2019-08-14] MEDS ORDERED: diphenhdrAMINE HCL 25 MG CAP PO ONE (06:00)
[2019-08-14] MEDS ORDERED: ONDANSETRON HCL 4 MG/2 ML VIAL IV PRN ×2 (08:15→08:30)
[2019-08-14] MEDS ORDERED: MORPHINE SULF INJ 2 MG/ML SYRINGE 1ML IV PRN ×4 (08:15→08:30)
[2019-08-14] MEDS ORDERED: NITROGLYCERIN 0.4 MG SL TAB SL PRN ×2 (08:15→08:30)
[2019-08-14] MEDS ORDERED: hydrALAZINE HCL 20 MG/ML VL IV PRN (08:15)
[2019-08-14 09:50] VITALS: BP 137/81
[2019-08-14 10:15] VITALS: BP 137/81
--- NOTE | 2019-08-14 10:15 | NUR ---
Telemetry admit from ER CARLOS MANUEL BENJAMIN admitted to Telemetry unit after verbal report received from FATEMEH Winkler, ER nurse. Patient oriented to Ani Carroll, primary RN, unit, room, bed, and unit policies regarding patient care and visiting hours. Patient is awake, alert and oriented X4. No signs or symptoms of shortness of breath, discomfort or pain. Tele# 29, sinus rhythm @ 74 bpm. Right upper arm fistula with good bruit and thrill, dressing clean, dry and intact. IV to left antecubital, 20 gauge, patent and saline locked. Plan of care discussed with patient, verbalized understanding. Bed locked, in lowest position, call light within reach, will continue to monitor Q1 hour and PRN.
[2019-08-14] MEDS: FUROSEMIDE 40 MG TAB PO SCH ×2 (12:47→22:18)
[2019-08-14] MEDS: LISINOPRIL 5 MG TAB PO SCH (12:48)
[2019-08-14] MEDS: METOPROLOL SUCCINATE XL 50 MG TAB PO SCH (12:48)
[2019-08-14] MEDS: CALCIUM ACETATE 667 MG CAP PO SCH ×2 (12:48→18:11)
[2019-08-14] MEDS: CINACALCET HYDROCHLORIDE 30 MG TAB PO SCH (12:49)
--- NOTE | 2019-08-14 15:15 | NUR ---
NEPHROLOGY Call received from Dr Graff, updated on patients status. New order received for GI consult, placed and followed through.
[2019-08-14] MEDS ORDERED: NIFE90TA30 PO (15:44)
[2019-08-14] MEDS ORDERED: SIMV-8 PO (15:44)
[2019-08-14] MEDS ORDERED: LEVO150T10 PO (15:44)
[2019-08-14] MEDS ORDERED: TRAZ-181 PO (15:44)
[2019-08-14] MEDS ORDERED: HYDR50TA15 PO (15:44)
[2019-08-14 16:41] VITALS: BP 134/78
--- NOTE | 2019-08-14 19:18 | NUR ---
Care endorsed to FATEMEH Ulloa, night nurse.
--- NOTE | 2019-08-14 19:40 | NUR ---
Opening Shift Note Assumed care of patient, awake and alert oriented x4. No S/S of distress/SOB noted. Bed is in lowest locked position with bed rails up x2 and call light is within reach of the patient. Instructed on POC and to call for assist PRN. Addendum: 08/15/19 at 0041 by Laila Graff RN RN Right upper arm fistula with good bruit and thrill, no pain noted. Provided patient with urinal at the bedside.
[2019-08-14 22:56] VITALS: BP 144/90
--- NOTE | 2019-08-15 00:41 | NUR ---
Report given to Ally WELDON. Patient resting in bed with breaths even and unlabored.
--- NOTE | 2019-08-15 00:45 | NUR ---
assumed care of patient who is resting in bed with eyes closed. Respirations are even and non-labored. No distress noted. Currently on 2L NC. Patient is ambulatory at baseline. Bed is in low locked position with side rails up x2. Call light is within reach. Will continue to monitor for changes PRN.
[2019-08-15 05:34] VITALS: BP 155/94
--- NOTE | 2019-08-15 05:34 | NUR ---
Inquired about family medical history; patient denies any pertinent medical history in his family.
[2019-08-15 05:59] LABS: Basophils # (auto) 0.1 uL; Basophils % (auto) 2.1 % (0.0-2.0); Eosinophils # (auto) 0.1 uL; Eosinophils % (auto) 2.4 % (0.0-7.0); Hematocrit 29.6 % (41.0-53.0); Hemoglobin 9.8 g/dL (13.5-17.5); Lymphocytes # (auto) 0.7 uL; Lymphocytes % (auto) 15.6 % (10.0-50.0); Mean Corpuscular Hemoglobin 32.4 pg (28.0-32.0); Mean Corpuscular Hgb Conc. 33.1 g/dL (32.0-36.0); Mean Corpuscular Volume 97.9 fL (80.0-100.0); Monocytes # (auto) 0.4 uL; Monocytes % (auto) 9.3 % (0.0-12.0); Neutrophils % (auto) 70.6 % (37.0-80.0); Nucleated Red Blood Cells % 0.1 %; Platelet Count (auto) 163 10^3/uL (140-450); Red Blood Cells 3.02 10^6/uL (4.5-5.90); Red Cell Distribution Width 16.6 % (11.8-14.3); White Blood Cell 4.3 10^3/uL (4.4-10.8)
[2019-08-15 06:22] LABS: Albumin 3.2 g/dL (3.4-5.0); Anion Gap 13 (5-15); Blood Urea Nitrogen 62 mg/dL (7-18); Carbon Dioxide 27 mmol/L (21-32); Chloride 96 mmol/L (98-107); Glucose 81 mg/dL (74-106); Potassium 5.2 mmol/L (3.5-5.1); Sodium 136 mmol/L (136-145)
[2019-08-15 06:28] LABS: Alanine Aminotransferase 13 U/L (16-61); Alkaline Phosphatase 166 U/L (45-117); Aspartate Aminotransferase 14 U/L (15-37); BUN/Creatinine Ratio 5.3; Bilirubin, Total 0.8 mg/dL (0.2-1.0); GFR African American 6 mL/min; GFR Non-African American 5 mL/min; Total Protein 7.2 g/dL (6.4-8.2)
--- NOTE | 2019-08-15 06:34 | NUR ---
Received call from lab reporting critical Creatinine of 11.9. Hospitalist paged to notify.
--- NOTE | 2019-08-15 07:30 | NUR ---
Morning note patient resting in bed with eyes closed, respirations even and unlabored, no distress noted. Fall precautions in place with bed in lowest locked position with x2 side rails up and call light within reach. Will continue to monitor q1hr & PRN.
[2019-08-15] MEDS: CALCIUM ACETATE 667 MG CAP PO SCH ×2 (08:30→11:32)
--- NOTE | 2019-08-15 08:30 | NUR ---
sequencing machine operator at bedside
[2019-08-15] MEDS ORDERED: SODIUM CHL 0.9% 1000 ML BAG XX ONE (08:45)
[2019-08-15 09:00] VITALS: BP 182/103
--- NOTE | 2019-08-15 09:25 | NUR ---
Patient refusing BP medication - elevated BP This RN notified by the quill reamer that the patient's BP is 178/109 mmHG, HR 68 bpm. Patient refusing ordered medications. Patient stated "I don't want to take no Lasix. I don't take Metoprolol. I take Clonidine. I'm not taking anything. Just leave me alone. I just want to sleep. I'm not taking anything after treatment either. Just leave me alone." Attempted to educate patient RE: elevated BP and ordered medications. Patient refused education and stated "You can leave now. I'm not taking anything. Just leave me alone. I'm going to sleep now." Respirations even and unlabored, no distress noted. Will continue to monitor q1hr & PRN.
[2019-08-15] MEDS: CINACALCET HYDROCHLORIDE 30 MG TAB PO SCH (10:00)
[2019-08-15] MEDS: LISINOPRIL 5 MG TAB PO SCH (10:00)
[2019-08-15] MEDS: FUROSEMIDE 40 MG TAB PO SCH (10:00)
--- NOTE | 2019-08-15 11:18 | NUR ---
Notified MD Sathya Polanco Called Dr. Polanco to notify MD of patient's elevated BP of 196/83 mmHG, HR 69 bpm after dialysis with patient refusing ordered BP medications; as well as patient's c/o itching. No answer. Voicemail left.
[2019-08-15] MEDS: hydrALAZINE HCL 20 MG/ML VL IV PRN ×2 (11:32→13:13)
[2019-08-15] MEDS: METOPROLOL SUCCINATE XL 50 MG TAB PO SCH (11:33)
--- NOTE | 2019-08-15 11:33 | NUR ---
RE: refused BP medications Patient stated "I'm not taking all those other ones. I don't want the one that goes through my IV. I'll take the metoprolol but that's it. That will bring it down. I take clonidine and you guys aren't even giving it to me." Patient & this RN reviewed list of patient's home medications that the patient provided to this RN. Clonidine not listed on the list. Patient stated "Oh, I must have left it at home." Patient refused Phoslo. Patient stated "I don't want it. I don't want to be in the bathroom peeing." This RN educated patient on the medication, including to but not limited to reason for the medication. Patient verbalized understanding and stated "I don't care. I don't want it." Respirations even and unlabored, no distress noted. Call light within reach. Will continue to monitor q1hr & PRN.
--- NOTE | 2019-08-15 12:51 | NUR ---
Orders received Orders received and read back to verify RE: BP medication Addendum: 08/15/19 at 1312 by Mary Arrieta RN Contacted MD at 1253 to clarify order received. Addendum: 08/15/19 at 1320 by Mary Arrieta RN Order clarified. Will carry out order as instructed.
[2019-08-15 13:09] VITALS: BP 172/92
--- NOTE | 2019-08-15 13:14 | NUR ---
RE: Elevated BP; patient refused Patient BP continues to be elevated after administration of scheduled BP medication. Patient refused PRN BP medication. Patient stated "I'm not taking it. The other medication will help bring it down. I'm fine." Respirations even and unlabored, no distress noted. Call light within reach. Will continue to monitor q1hr & PRN.
[2019-08-15] MEDS ORDERED: cloNIDine HCL 0.1 MG TAB PO SCH (14:00)
--- NOTE | 2019-08-15 14:17 | NUR ---
Patient left AMA at 1325 Patient left AMA while this RN was on lunch break. Patient stated to Summer RN "I haven't been seen by a doctor in 3 days. I'm over it." AMA signed. Respirations even and unlabored, no distress noted per Summer RN. IV removed by Summer RN with clean technique, catheter intact; dressing applied. Summer RN removed and returned the telemonitor. Patient collected all personal belongings and ambulated with a steady gait off the unit per Summer RN. This RN notified Dr. Polanco at 1415. verbalized understanding.
[2019-08-15] MEDS ORDERED: EPOETIN ALFA 4,000 UNIT/ML VL SC ONE (21:00)
== END 2019-08-15 13:45 | disposition left against medical advice (07) ==
LOC: ER 22:48 → TELE 22:49 → TELE-CENTR 08-14 09:45
PROVIDERS: ADMIT Internal Medicine; ATTEND Internal Medicine
PROC: 5A1D70Z Performance of Urinary Filtration, Intermittent, Less than 6 Hours Per Day (ICD-10-PCS; principal; 2019-08-15)
DX: R18.8 Other ascites (principal); I13.2 Hypertensive heart and chronic kidney disease with heart failure and with stage 5 chronic kidney disease, or end stage renal disease; N18.6 End stage renal disease; F20.9 Schizophrenia, unspecified; R07.89 Other chest pain; N28.1 Cyst of kidney, acquired; R10.9 Unspecified abdominal pain; F31.9 Bipolar disorder, unspecified; Z53.29 Procedure and treatment not carried out because of patient's decision for other reasons; K44.9 Diaphragmatic hernia without obstruction or gangrene; M54.5 Low back pain; K40.90 Unilateral inguinal hernia, without obstruction or gangrene, not specified as recurrent; I50.9 Heart failure, unspecified; E66.9 Obesity, unspecified; Z82.49 Family history of ischemic heart disease and other diseases of the circulatory system; Z99.2 Dependence on renal dialysis; Z91.15 Patient's noncompliance with renal dialysis; Z83.3 Family history of diabetes mellitus; Z88.5 Allergy status to narcotic agent; Z88.0 Allergy status to penicillin; Z90.49 Acquired absence of other specified parts of digestive tract; Z68.30 Body mass index [BMI] 30.0-30.9, adult
CPT/HCPCS: 36415; 74176; 80053; 82150; 83690; 84484; 85025; 90935; 93005; G0378

== ENCOUNTER 2019-09-24 13:56 | Inpatient (IN) | payer MEDICAID ==
[~2019-09-24] VITALS: Ht 167.6 cm; Wt 80.0 kg
[~2019-09-24 13:56] MED LIST changes: +HYDR50TA15 PO; +LEVO150T10 PO; +NIFE90TA30 PO; +SIMV-8 PO; +TRAZ-181 PO
[2019-09-24 14:36] LABS: Basophils # (auto) 0.1 uL; Basophils % (auto) 2.2 % (0.0-2.0); Eosinophils # (auto) 0.1 uL; Eosinophils % (auto) 3.9 % (0.0-7.0); Hematocrit 29.7 % (41.0-53.0); Hemoglobin 10.2 g/dL (13.5-17.5); Lymphocytes # (auto) 0.6 uL; Lymphocytes % (auto) 16.6 % (10.0-50.0); Mean Corpuscular Hemoglobin 33.7 pg (28.0-32.0); Mean Corpuscular Hgb Conc. 34.3 g/dL (32.0-36.0); Mean Corpuscular Volume 98.3 fL (80.0-100.0); Monocytes # (auto) 0.4 uL; Monocytes % (auto) 12.4 % (0.0-12.0); Neutrophils # (auto) 2.2 uL; Neutrophils % (auto) 64.9 % (37.0-80.0); Platelet Count (auto) 145 10^3/uL (140-450); Red Blood Cells 3.02 10^6/uL (4.5-5.90); Red Cell Distribution Width 15.8 % (11.8-14.3); White Blood Cell 3.3 10^3/uL (4.4-10.8)
[2019-09-24 14:48] LABS: Albumin 3.2 g/dL (3.4-5.0); BUN/Creatinine Ratio 5.5; Calcium 8.9 mg/dL (8.5-10.1); Potassium 3.5 mmol/L (3.5-5.1)
[2019-09-24 14:53] LABS: Bilirubin, Total 0.8 mg/dL (0.2-1.0); Total Protein 6.9 g/dL (6.4-8.2)
[2019-09-24] MEDS ORDERED: cefTRIAXone 1GM/50ML D5W 50 ML IV ONE ×2 (15:15→16:15)
[2019-09-24 16:12] LABS: INR 1.08 (0.9-1.15); Partial Thromboplastin Time 28.6 sec (23.64-32.05)
[2019-09-24] MEDS ORDERED: ASPirin-EC 81 mg tab PO ONE (17:45)
[2019-09-24] MEDS ORDERED: ONDANSETRON HCL 4 MG/2 ML VIAL IV PRN (21:30)
[2019-09-24] MEDS ORDERED: MORPHINE SULFATE 4 MG/ML SYR/VIAL IV PRN (21:30)
[2019-09-24] MEDS ORDERED: HYDROcodone-ACET 5/325MG TAB PO PRN (21:30)
[2019-09-24] MEDS ORDERED: DOCUSATE SOD 100 MG CAP PO PRN (21:30)
[2019-09-24] MEDS ORDERED: ACETAMINOPHEN 325 MG TAB PO PRN (21:30)
[2019-09-24 23:02] VITALS: BP 156/78
--- NOTE | 2019-09-24 23:24 | NUR ---
MS admit from ED received pt via wheelchair, awake, alert and oriented x4. pt on 3L NC no distress noted or expressed. pt updated on plan of care. pt oriented to room, nurse and call light. pt skin intact, has dialysis fistula on right upper extremity. bed locked, low and 2x rails up. call light in reach, encouraged to call nurse as needed. this nurse will round q1hr and prn.
--- NOTE | 2019-09-24 23:43 | NUR ---
this nurse asked pt to clarify report of allergy to MS and codeine. to which pt reports "i get itching from head to toe with the morphine and i dont like it, i rather have norco for my pain". in regards to reported codeine allergy, "i throw up when i get codeine". this nurse will report this to transmission inspector physician.
--- NOTE | 2019-09-25 07:30 | NUR ---
Opening Shift Note Assumed care of patient, awake, alert, and oriented. No S/S of distress/SOB or pain. Instructed on POC and to call for assist PRN. Bed in low/locked position, bed rails up x2, call light within reach. Will continue to monitor for changes Q1hr and PRN.
[2019-09-25 09:06] VITALS: BP 121/61
[2019-09-25 13:18] VITALS: BP 179/104
[2019-09-25 16:52] VITALS: BP 153/97
--- NOTE | 2019-09-25 18:00 | NUR ---
SALTY OLEA RE: PATIENT BLOOD PRESSURE 179/104mmHg, 153/97mmHg. LEFT MESSAGE WITH EXCHANGE. AWAITING RETURN PHONE CALL. WILL CONTINUE TO MONITOR
--- NOTE | 2019-09-25 19:29 | NUR ---
PAIN PATIENT C/O CHEST PAIN TO RIGHT SIDE, BURNING 05/11. VITAL SIGNS 98.3F, B/P 181/99, HR 77, RR 18, O2 SAT 92% ON 3L N/C. NO CHANGES FROM PREVIOUS EKG. NOTIFIED DR OLEA. AWAITING RETURN PHONE CALL
--- NOTE | 2019-09-25 19:45 | NUR ---
Opening Shift Note Assumed care of patient, awake and alert. No S/S of distress/SOB. Instructed on POC and to call for assist PRN, call light within reach, will continue to monitor for changes Q1hr and PRN.
[2019-09-25 21:26] VITALS: BP 169/102
[2019-09-25 21:33] VITALS: BP 169/102
--- NOTE | 2019-09-25 21:47 | NUR ---
Patient's BP is high at 169/102, noted no BP meds at this time, paged MD, awaiting call back
[2019-09-25] MEDS ORDERED: hydrALAZINE HCL 20 MG/ML VL IV PRN (23:15)
[2019-09-25] MEDS ORDERED: cloNIDine HCL 0.1 MG TAB PO PRN (23:15)
--- NOTE | 2019-09-25 23:15 | NUR ---
Received new order from Dr. Polanco, acknowledged and will carry out order
[2019-09-26] MEDS: cloNIDine HCL 0.1 MG TAB PO SCH ×2 (00:11→06:38)
--- NOTE | 2019-09-26 05:51 | NUR ---
PATIENT REFUSED VITAL SIGNS @ 0600 HRS, ELVIN WELDON AWARE.
[2019-09-26 06:38] VITALS: BP 176/104
--- NOTE | 2019-09-26 08:00 | NUR ---
BLOOD PRESSURE PATIENT REASSESSED AFTER MEDICATION. B/P 162/91. PER MD ORDER SBP>160 PRN HYDRALAZINE. PATIENT REFUSING AT THIS TIME. WILL REASSESS AND CONTINUE TO MONITOR
[2019-09-26 08:30] VITALS: BP 162/91
--- NOTE | 2019-09-26 11:18 | NUR ---
AMA Note CARLOS MANUEL BENJAMIN states they want to leave the hospital Against Medical Advice (AMA). Patient encouraged to stay for further treatment/stabilization. ANNA MARIE OLEA MD notified of patient's wishes. Patient advised of the risks and benefits of leaving AMA. Patient verbalized understanding. Patient encouraged to return to the ER if symptoms do not improve or worsen. Patient encouraged to follow up with primary care physician. Patient escorted by staff member and family. No s/s of distress, SOB, or pain noted at departure.
== END 2019-09-26 11:15 | disposition left against medical advice (07) | DRG 194 ==
LOC: EDBD 13:56 → ER 14:17 → OVERFLOW 14:18 → ER 14:24 → WEST WING 22:38
PROVIDERS: ADMIT Hospitalist; ATTEND Internal Medicine
DX: I13.2 Hypertensive heart and chronic kidney disease with heart failure and with stage 5 chronic kidney disease, or end stage renal disease (principal); J18.9 Pneumonia, unspecified organism; J91.8 Pleural effusion in other conditions classified elsewhere; I27.20 Pulmonary hypertension, unspecified; N18.6 End stage renal disease; F20.9 Schizophrenia, unspecified; E78.5 Hyperlipidemia, unspecified; Z53.21 Procedure and treatment not carried out due to patient leaving prior to being seen by health care provider; F32.9 Major depressive disorder, single episode, unspecified; I50.43 Acute on chronic combined systolic (congestive) and diastolic (congestive) heart failure; D63.8 Anemia in other chronic diseases classified elsewhere; Z82.49 Family history of ischemic heart disease and other diseases of the circulatory system; Z99.2 Dependence on renal dialysis; Z88.5 Allergy status to narcotic agent; Z88.0 Allergy status to penicillin; Z90.49 Acquired absence of other specified parts of digestive tract; Z83.3 Family history of diabetes mellitus
CPT/HCPCS: 36415; 71045; 71250; 80053; 83880; 84484; 85025; 85610; 85730; 87081; 93005; 96365; G0378; J0696

== ENCOUNTER 2019-10-18 16:36 | Emergency (ER) | payer MEDICAID ==
[~2019-10-18] VITALS: Ht 172.7 cm; Wt 80.7 kg
[2019-10-18 20:00] VITALS: BP 181/101
== END 2019-10-18 21:26 | disposition home or self-care (01) ==
LOC: ER 16:36 → EDBD 16:36 → ER 21:26
DX: I13.2 Hypertensive heart and chronic kidney disease with heart failure and with stage 5 chronic kidney disease, or end stage renal disease (principal); N18.6 End stage renal disease; I50.9 Heart failure, unspecified; I77.0 Arteriovenous fistula, acquired; J44.9 Chronic obstructive pulmonary disease, unspecified; E78.5 Hyperlipidemia, unspecified; Z88.0 Allergy status to penicillin; Z88.6 Allergy status to analgesic agent; Z79.899 Other long term (current) drug therapy

== ENCOUNTER 2019-11-30 01:58 | Emergency (ER) | payer MEDICAID ==
[~2019-11-30] VITALS: Ht 172.7 cm; Wt 81.6 kg
[~2019-11-30 01:58] MED LIST changes: -NIFE90TA30 PO; +NIFE90TA49 PO
[2019-11-30 02:08] VITALS: BP 145/75
== END 2019-11-30 02:45 | disposition left against medical advice (07) ==
LOC: ER 02:01
DX: R51 Headache (principal); Z53.21 Procedure and treatment not carried out due to patient leaving prior to being seen by health care provider

== ENCOUNTER 2019-12-10 08:59 | Emergency (ER) | payer MEDICAID ==
[~2019-12-10] VITALS: Ht 172.7 cm; Wt 81.6 kg
[2019-12-10 09:47] VITALS: BP 190/98
== END 2019-12-10 10:38 | disposition home or self-care (01) ==
LOC: ER 08:59
DX: H10.33 Unspecified acute conjunctivitis, bilateral (principal); I13.2 Hypertensive heart and chronic kidney disease with heart failure and with stage 5 chronic kidney disease, or end stage renal disease; N18.6 End stage renal disease; I50.9 Heart failure, unspecified; J44.9 Chronic obstructive pulmonary disease, unspecified; E78.5 Hyperlipidemia, unspecified; E07.9 Disorder of thyroid, unspecified; Z79.899 Other long term (current) drug therapy; Z88.5 Allergy status to narcotic agent; Z88.0 Allergy status to penicillin

== ENCOUNTER 2020-03-01 08:07 | Emergency (ER) | payer MEDICAID ==
[~2020-03-01] VITALS: Ht 172.7 cm; Wt 81.6 kg
[2020-03-01 08:41] VITALS: BP 174/93
== END 2020-03-01 09:01 | disposition home or self-care (01) ==
LOC: ER 08:07
DX: H10.33 Unspecified acute conjunctivitis, bilateral (principal); E11.22 Type 2 diabetes mellitus with diabetic chronic kidney disease; I13.2 Hypertensive heart and chronic kidney disease with heart failure and with stage 5 chronic kidney disease, or end stage renal disease; N18.6 End stage renal disease; I50.9 Heart failure, unspecified; E78.5 Hyperlipidemia, unspecified; Z88.0 Allergy status to penicillin; Z88.6 Allergy status to analgesic agent

== ENCOUNTER 2020-07-30 09:20 | Emergency (ER) | payer MEDICAID ==
[~2020-07-30] VITALS: Ht 172.7 cm; Wt 81.6 kg
[2020-07-30] MEDS ORDERED: FUROSEMIDE 40 MG/4 ML VIAL IV ONE (10:00)
[2020-07-30 10:26] LABS: Basophils # (auto) 0.1 10 ^3/uL (0-0.2); Basophils % (auto) 1.2 % (0.0-2.0); Eosinophils # (auto) 0.4 10 ^3/uL (0-0.8); Hematocrit 37.7 % (41.0-53.0); Hemoglobin 12.9 g/dL (13.5-17.5); Lymphocytes # (auto) 0.8 10 ^3/uL (0.4-5.4); Lymphocytes % (auto) 14.5 % (10.0-50.0); Mean Corpuscular Hemoglobin 33.7 pg (28.0-32.0); Mean Corpuscular Hgb Conc. 34.3 g/dL (32.0-36.0); Mean Corpuscular Volume 98.3 fL (80.0-100.0); Monocytes # (auto) 0.4 10 ^3/uL (0-1.3); Monocytes % (auto) 7.7 % (0.0-12.0); Neutrophils # (auto) 3.7 10 ^3/uL (1.6-8.6); Neutrophils % (auto) 68.6 % (37.0-80.0); Platelet Count (auto) 213 10^3/uL (140-450); Red Blood Cells 3.83 10^6/uL (4.5-5.90); Red Cell Distribution Width 14.1 % (11.8-14.3); White Blood Cell 5.5 10^3/uL (4.4-10.8)
[2020-07-30 10:45] LABS: Albumin 3.8 g/dL (3.4-5.0); Calcium 8.7 mg/dL (8.5-10.1); Potassium 4.6 mmol/L (3.5-5.1)
[2020-07-30 10:53] LABS: BUN/Creatinine Ratio 5.2; Bilirubin, Total 0.9 mg/dL (0.2-1.0)
[2020-07-30] MEDS ORDERED: hydrALAZINE HCL 20 MG/ML VL IV ONE (11:45)
[2020-07-30 12:00] VITALS: BP 191/87
== END 2020-07-30 12:48 | disposition left against medical advice (07) ==
LOC: ER 09:20
DX: I13.2 Hypertensive heart and chronic kidney disease with heart failure and with stage 5 chronic kidney disease, or end stage renal disease (principal); I50.1 Left ventricular failure, unspecified; N18.6 End stage renal disease; E78.5 Hyperlipidemia, unspecified; J44.9 Chronic obstructive pulmonary disease, unspecified
CPT/HCPCS: 36415; 71045; 80053; 83880; 84484; 85025; 96374; 99284; J1940

== ENCOUNTER 2020-12-15 12:21 | Inpatient (IN) | payer MEDICAID ==
[~2020-12-15] VITALS: Ht 167.6 cm; Wt 74.8 kg
[~2020-12-15 12:21] MED LIST changes: -METO-169 PO; +METO-289 PO
[2020-12-15 14:20] LABS: Basophils # (auto) 0.1 10 ^3/uL (0-0.2); Eosinophils # (auto) 0.1 10 ^3/uL (0-0.8); Lymphocytes # (auto) 0.4 10 ^3/uL (0.4-5.4); Lymphocytes % (auto) 4.9 % (10.0-50.0); Monocytes # (auto) 0.5 10 ^3/uL (0-1.3); Neutrophils # (auto) 6.8 10 ^3/uL (1.6-8.6); Nucleated Red Blood Cells % 0.1 %; White Blood Cell 7.9 10^3/uL (4.4-10.8)
[2020-12-15 14:22] LABS: Basophils % (auto) 0.7 % (0.0-2.0); Eosinophils % (auto) 1.6 % (0.0-7.0); Hematocrit 20.4 % (41.0-53.0); Mean Corpuscular Hemoglobin 33.6 pg (28.0-32.0); Mean Corpuscular Hgb Conc. 34.5 g/dL (32.0-36.0); Mean Corpuscular Volume 97.3 fL (80.0-100.0); Monocytes % (auto) 6.8 % (0.0-12.0); Red Cell Distribution Width 13.9 % (11.8-14.3)
[2020-12-15 14:38] LABS: Albumin 2.9 g/dL (3.4-5.0); BUN/Creatinine Ratio 5.5; Calcium 9.2 mg/dL (8.5-10.1); Potassium 4.5 mmol/L (3.5-5.1)
[2020-12-15 14:42] LABS: Bilirubin, Total 0.8 mg/dL (0.2-1.0); Total Protein 7.4 g/dL (6.4-8.2)
[2020-12-15 14:55] LABS: INR 1.08 (0.9-1.15); Partial Thromboplastin Time 31.3 sec (23.0-31.2)
[2020-12-15] MEDS ORDERED: HYDROcodone-ACET 5/325MG TAB PO PRN (18:45)
[2020-12-15] MEDS ORDERED: ONDANSETRON HCL 4 MG/2 ML VIAL IV PRN (18:45)
[2020-12-15] MEDS ORDERED: ACETAMINOPHEN 325 MG TAB PO PRN (18:45)
[2020-12-15] MEDS ORDERED: MORPHINE SULFATE INJECTION 2 MG/ML SYRG IV PRN ×2 (18:45)
[2020-12-15] MEDS ORDERED: NITROGLYCERIN 0.4 MG SL TAB SL PRN (18:45)
[2020-12-15] MEDS: FUROSEMIDE 40 MG TAB PO SCH (22:00)
[2020-12-15] MEDS: METOPROLOL SUCCINATE XL 50 MG TAB PO SCH (22:04)
[2020-12-15] MEDS: HEPARIN SODIUM (PORCINE) 5000 UNITS/ML 1ML VIAL SC SCH (22:05)
[2020-12-16] VITALS (8 sets, daily range): BP systolic 161–177; BP diastolic 91–100
[2020-12-16] MEDS: HEPARIN SODIUM (PORCINE) 5000 UNITS/ML 1ML VIAL SC SCH (06:09)
[2020-12-16] MEDS ORDERED: CALCIUM ACETATE 667 MG CAP PO SCH (08:00)
[2020-12-16] MEDS: METOPROLOL SUCCINATE XL 50 MG TAB PO SCH (08:13)
[2020-12-16] MEDS: FUROSEMIDE 40 MG TAB PO SCH (08:13)
[2020-12-16] MEDS ORDERED: LISINOPRIL 5 MG TAB PO SCH (10:00)
[2020-12-16] MEDS ORDERED: PATIENTS OWN MEDICATION (Levothyroxine Sodium 300 MCG) PO SCH (10:00)
[2020-12-16] MEDS ORDERED: CINACALCET HYDROCHLORIDE 30 MG TAB PO SCH (10:00)
[2020-12-16] MEDS ORDERED: hydrALAZINE HCL 25 MG TAB PO SCH (10:00)
[2020-12-16] MEDS ORDERED: DexAMETHasone SOD PHOS 10MG/1ML VIAL INJ IV SCH (10:00)
[2020-12-16] MEDS ORDERED: NIFEdipine ER 30 MG TAB PO SCH (10:00)
[2020-12-16] MEDS ORDERED: SIMVASTATIN PO SCH (18:00)
== END 2020-12-16 11:45 | disposition left against medical advice (07) | DRG 140 ==
LOC: ER 12:21 → EDBD 12:21 → TELE 12:22
PROVIDERS: ADMIT Internal Medicine; ATTEND Internal Medicine
PROC: 30233N1 Transfusion of Nonautologous Red Blood Cells into Peripheral Vein, Percutaneous Approach (ICD-10-PCS; principal; 2020-12-16)
DX: J44.0 Chronic obstructive pulmonary disease with (acute) lower respiratory infection (principal); J96.20 Acute and chronic respiratory failure, unspecified whether with hypoxia or hypercapnia; J18.9 Pneumonia, unspecified organism; D64.9 Anemia, unspecified; E03.9 Hypothyroidism, unspecified; F41.9 Anxiety disorder, unspecified; I13.2 Hypertensive heart and chronic kidney disease with heart failure and with stage 5 chronic kidney disease, or end stage renal disease; I50.9 Heart failure, unspecified; N18.6 End stage renal disease; Z20.822 Contact with and (suspected) exposure to COVID-19; Z82.49 Family history of ischemic heart disease and other diseases of the circulatory system; Z83.3 Family history of diabetes mellitus; Z99.2 Dependence on renal dialysis; Z53.29 Procedure and treatment not carried out because of patient's decision for other reasons; Z88.6 Allergy status to analgesic agent; Z88.5 Allergy status to narcotic agent; Z88.0 Allergy status to penicillin
CPT/HCPCS: 36415; 71045; 80053; 82270; 83605; 83735; 84484; 85025; 85610; 85730; 86850; 86900; 86901; 86920; 87040; 87077; 87426; 87493; 93005; G0378; J1100

== ENCOUNTER 2021-01-14 15:46 | Inpatient (IN) | payer MEDICAID ==
[~2021-01-14] VITALS: Ht 175.3 cm; Wt 73.0 kg
[~2021-01-14 15:46] MED LIST changes: +METO-169 PO; -METO-289 PO
[2021-01-14 17:41] LABS: Basophils # (auto) 0.1 10 ^3/uL (0-0.2); Eosinophils # (auto) 0.1 10 ^3/uL (0-0.8); Lymphocytes # (auto) 0.5 10 ^3/uL (0.4-5.4)
[2021-01-14 17:43] LABS: Basophils % (auto) 0.6 % (0.0-2.0); Hematocrit 20.3 % (41.0-53.0); Mean Corpuscular Hgb Conc. 34.6 g/dL (32.0-36.0); Mean Corpuscular Volume 95.3 fL (80.0-100.0); Monocytes # (auto) 0.8 10 ^3/uL (0-1.3); Monocytes % (auto) 6.7 % (0.0-12.0); Neutrophils # (auto) 10.4 10 ^3/uL (1.6-8.6); Neutrophils % (auto) 87.7 % (37.0-80.0); Platelet Count (auto) 147 10^3/uL (140-450); Red Blood Cells 2.13 10^6/uL (4.5-5.90); Red Cell Distribution Width 18.7 % (11.8-14.3); White Blood Cell 11.8 10^3/uL (4.4-10.8)
[2021-01-14] MEDS ORDERED: MORPHINE SULF INJ 2 MG/ML SYRINGE 1ML IV ONE (17:45)
[2021-01-14] MEDS ORDERED: ONDANSETRON HCL 4 MG/2 ML VIAL IV ONE (17:45)
[2021-01-14 17:53] LABS: INR 1.1 (0.9-1.15); Partial Thromboplastin Time 33.6 sec (23.0-31.2)
[2021-01-14 17:59] LABS: Albumin 2.8 g/dL (3.4-5.0); Calcium 8.4 mg/dL (8.5-10.1)
[2021-01-14] MEDS ORDERED: diphenhdrAMINE HCL 50 MG/1 ML VL IV ONE (18:00)
[2021-01-14 18:06] LABS: Bilirubin, Total 0.9 mg/dL (0.2-1.0); Total Protein 7.6 g/dL (6.4-8.2)
[2021-01-14] MEDS ORDERED: fentaNYL CITRATE 100 MCG/2 ML VL IV ONE (18:15)
[2021-01-14 18:28] LABS: BUN/Creatinine Ratio 8.6
[2021-01-14 18:30] LABS: Potassium 6.1 mmol/L (3.5-5.1)
[2021-01-14] MEDS ORDERED: CALCIUM GLUC 4.65meq/50ml D5AE 50 ML IV ONE (22:00)
[2021-01-14] MEDS ORDERED: SODIUM BICARBONATE 8.4% INJ 50ML SYRINGE IV ONE (22:00)
[2021-01-14] MEDS ORDERED: SODIUM ZIRCONIUM CYCL 10 GM PAK PO ONE ×2 (22:00)
[2021-01-14] MEDS ORDERED: ALBUTEROL SULF 2.5 MG/0.5ML(0.5%) NEB SOLN NEB ONE (22:00)
[2021-01-14] MEDS ORDERED: DEXTROSE (50%) 50ML SYRG IV ONE (22:00)
[2021-01-14] MEDS ORDERED: InsuLIN REG 1unit/0.01ml Soln (100units/ml) IV ONE (22:00)
[2021-01-15] MEDS ORDERED: MORPHINE SULF INJ 2 MG/ML SYRINGE 1ML IV PRN (00:15)
[2021-01-15] MEDS ORDERED: DEXTROSE (50%) 50ML SYRG IV PRN (00:15)
[2021-01-15] MEDS ORDERED: NITROGLYCERIN 0.4 MG SL TAB SL PRN (00:15)
[2021-01-15] MEDS ORDERED: ACETAMINOPHEN 325 MG TAB PO ONE (01:00)
[2021-01-15] MEDS ORDERED: cloNIDine HCL 0.1 MG TAB PO ONE (06:00)
[2021-01-15] MEDS: InsuLIN REG 1unit/0.01ml Soln (100units/ml) SC SCH ×3 (06:36→17:05)
[2021-01-15] MEDS: ACCU-CHEK COMFORT CURVE STRIP VI SCH ×3 (06:36→17:04)
[2021-01-15 06:43] LABS: Basophils # (auto) 0.1 10 ^3/uL (0-0.2); Eosinophils # (auto) 0.1 10 ^3/uL (0-0.8); Lymphocytes # (auto) 0.6 10 ^3/uL (0.4-5.4); Monocytes # (auto) 0.7 10 ^3/uL (0-1.3); White Blood Cell 9.6 10^3/uL (4.4-10.8)
[2021-01-15 06:46] LABS: Basophils % (auto) 0.8 % (0.0-2.0); Eosinophils % (auto) 0.9 % (0.0-7.0); Hematocrit 20.6 % (41.0-53.0); Hemoglobin 7.2 g/dL (13.5-17.5); Mean Corpuscular Hemoglobin 33.7 pg (28.0-32.0); Mean Corpuscular Hgb Conc. 35.1 g/dL (32.0-36.0); Mean Corpuscular Volume 96.2 fL (80.0-100.0); Monocytes % (auto) 7.2 % (0.0-12.0); Neutrophils # (auto) 8.2 10 ^3/uL (1.6-8.6); Neutrophils % (auto) 85.1 % (37.0-80.0); Platelet Count (auto) 146 10^3/uL (140-450); Red Blood Cells 2.14 10^6/uL (4.5-5.90); Red Cell Distribution Width 19.5 % (11.8-14.3)
[2021-01-15 06:58] LABS: Albumin 2.9 g/dL (3.4-5.0); BUN/Creatinine Ratio 9.3; Calcium 8.5 mg/dL (8.5-10.1)
[2021-01-15 07:01] LABS: Bilirubin, Total 1.1 mg/dL (0.2-1.0); Total Protein 7.8 g/dL (6.4-8.2)
[2021-01-15 07:13] LABS: Potassium 5.9 mmol/L (3.5-5.1)
[2021-01-15] MEDS: CALCIUM ACETATE 667 MG CAP PO SCH ×3 (07:58→17:04)
[2021-01-15] MEDS ORDERED: B-COMPLEX W/ C & FOLIC ACID(NEPHROVITE TAB) PO SCH (10:00)
[2021-01-15] MEDS ORDERED: hydrALAZINE HCL 25 MG TAB PO SCH (10:00)
[2021-01-15] MEDS ORDERED: NIFEdipine ER 30 MG TAB PO SCH (10:00)
[2021-01-15] MEDS ORDERED: METOPROLOL SUCCINATE XL 50 MG TAB PO SCH (10:00)
[2021-01-15] MEDS ORDERED: FUROSEMIDE 20 MG TAB PO SCH (10:00)
[2021-01-15] MEDS ORDERED: LEVOTHYROXINE SODIUM 100 MCG TAB PO SCH (10:00)
[2021-01-15] MEDS ORDERED: HEPARIN SODIUM (PORCINE) 5000 UNITS/ML 1ML VIAL ONE (12:42)
[2021-01-15] MEDS ORDERED: fentaNYL CITRATE 100 MCG/2 ML VL ONE (12:42)
[2021-01-15] MEDS ORDERED: MIDAZOLAM HCL 1MG/1ML-2 ML VIAL ONE (12:43)
[2021-01-15] MEDS ORDERED: LIDOCAINE 2%HCL (LOCAL ANESTH.) INJ 20ML MDV ONE (12:43)
[2021-01-15] MEDS ORDERED: LIDOCAINE W/ EPINEPHRINE 2% INJ 20ML VIAL ONE (13:39)
[2021-01-15 15:00] VITALS: BP 151/91
[2021-01-15 17:00] VITALS: BP 147/79
[2021-01-15 17:39] VITALS: BP 163/72
[2021-01-15] MEDS ORDERED: EPOETIN ALFA-EPBX 10,000 UNIT/1ML VIAL SC ONE (21:00)
[2021-01-15] MEDS ORDERED: ATORVASTATIN 20 MG TAB PO SCH (22:00)
[2021-01-15] MEDS ORDERED: ZOLPIDEM TARTRATE 5 MG TAB PO SCH (22:00)
[2021-01-15] MEDS ORDERED: traZODone HCL 50 MG TAB PO SCH (22:00)
== END 2021-01-15 18:21 | disposition home or self-care (01) | DRG 466 ==
LOC: ER 15:46 → TELE 01-15 00:12 → TELE-CENTR 01-15 15:23
PROVIDERS: ADMIT Hospitalist; ATTEND Hospitalist
PROC: 5A1D70Z Performance of Urinary Filtration, Intermittent, Less than 6 Hours Per Day (ICD-10-PCS; principal; 2021-01-15)
PROC: 0JH63XZ Insertion of Tunneled Vascular Access Device into Chest Subcutaneous Tissue and Fascia, Percutaneous Approach (ICD-10-PCS; 2021-01-15)
PROC: 02H633Z Insertion of Infusion Device into Right Atrium, Percutaneous Approach (ICD-10-PCS; 2021-01-15)
PROC: B5181ZA Fluoroscopy of Superior Vena Cava using Low Osmolar Contrast, Guidance (ICD-10-PCS; 2021-01-15)
PROC: B548ZZA Ultrasonography of Superior Vena Cava, Guidance (ICD-10-PCS; 2021-01-15)
DX: T82.42XA Displacement of vascular dialysis catheter, initial encounter (principal); N18.6 End stage renal disease; I13.2 Hypertensive heart and chronic kidney disease with heart failure and with stage 5 chronic kidney disease, or end stage renal disease; I50.43 Acute on chronic combined systolic (congestive) and diastolic (congestive) heart failure; E44.0 Moderate protein-calorie malnutrition; J96.11 Chronic respiratory failure with hypoxia; E11.22 Type 2 diabetes mellitus with diabetic chronic kidney disease; E87.5 Hyperkalemia; Z20.822 Contact with and (suspected) exposure to COVID-19; Z99.2 Dependence on renal dialysis; D63.1 Anemia in chronic kidney disease; E03.9 Hypothyroidism, unspecified; E21.2 Other hyperparathyroidism; E78.5 Hyperlipidemia, unspecified; F32.9 Major depressive disorder, single episode, unspecified; F41.9 Anxiety disorder, unspecified; J44.9 Chronic obstructive pulmonary disease, unspecified; Y83.8 Other surgical procedures as the cause of abnormal reaction of the patient, or of later complication, without mention of misadventure at the time of the procedure; Z82.49 Family history of ischemic heart disease and other diseases of the circulatory system; Z83.3 Family history of diabetes mellitus; Z88.5 Allergy status to narcotic agent; Z88.6 Allergy status to analgesic agent; Z88.0 Allergy status to penicillin; Y92.89 Other specified places as the place of occurrence of the external cause
CPT/HCPCS: 36415; 71045; 76937; 80053; 82962; 83880; 84132; 84484; 85025; 85610; 85730; 86850; 86900; 86901; 86920; 87426; 90935; 93005; 94640; 96365; 96375; 99152; 99153; G0378; J0610; J1815; J2250; J2405

== ENCOUNTER 2021-03-16 07:35 | Emergency (ER) | payer MEDICAID ==
[~2021-03-16] VITALS: Ht 175.3 cm; Wt 81.6 kg
[~2021-03-16 07:35] MED LIST changes: -FURO40TA4 PO; -HYDR50TA15 PO; -METO-169 PO; +METO-289 PO
[2021-03-16 07:38] VITALS: BP 171/87
[2021-03-16] MEDS ORDERED: diphenhdrAMINE HCL 25 MG CAP PO ONE (08:30)
== END 2021-03-16 08:57 | disposition home or self-care (01) ==
LOC: ER 07:35
DX: S30.860A Insect bite (nonvenomous) of lower back and pelvis, initial encounter (principal); S40.862A Insect bite (nonvenomous) of left upper arm, initial encounter; S40.861A Insect bite (nonvenomous) of right upper arm, initial encounter; B86 Scabies; I13.2 Hypertensive heart and chronic kidney disease with heart failure and with stage 5 chronic kidney disease, or end stage renal disease; N18.6 End stage renal disease; I50.9 Heart failure, unspecified; J44.9 Chronic obstructive pulmonary disease, unspecified; E78.5 Hyperlipidemia, unspecified; Z79.899 Other long term (current) drug therapy; Z88.0 Allergy status to penicillin; Z88.5 Allergy status to narcotic agent; W57.XXXA Bitten or stung by nonvenomous insect and other nonvenomous arthropods, initial encounter; Y93.89 Activity, other specified; Y92.89 Other specified places as the place of occurrence of the external cause; Y99.8 Other external cause status

== ENCOUNTER 2021-03-29 07:06 | Emergency (ER) | payer MEDICAID ==
[~2021-03-29] VITALS: Ht 172.7 cm; Wt 81.6 kg
[2021-03-29] MEDS ORDERED: cloNIDine HCL 0.1 MG TAB PO ONE (07:15)
[2021-03-29 07:50] VITALS: BP 163/93
== END 2021-03-29 08:16 | disposition home or self-care (01) ==
LOC: ER 07:06
DX: R21 Rash and other nonspecific skin eruption (principal); J44.9 Chronic obstructive pulmonary disease, unspecified; E78.5 Hyperlipidemia, unspecified; I13.0 Hypertensive heart and chronic kidney disease with heart failure and stage 1 through stage 4 chronic kidney disease, or unspecified chronic kidney disease; N18.9 Chronic kidney disease, unspecified; I50.9 Heart failure, unspecified; Z90.49 Acquired absence of other specified parts of digestive tract; Z88.0 Allergy status to penicillin; Z88.5 Allergy status to narcotic agent; Z79.899 Other long term (current) drug therapy

== ENCOUNTER 2021-07-18 21:41 | Inpatient (IN) | payer MEDICAID ==
[~2021-07-18] VITALS: Ht 167.6 cm; Wt 31.9 kg
[2021-07-18] MEDS ORDERED: NITROGLYCERIN 0.4 MG SL TAB SL PRN (22:00)
[2021-07-18 23:31] LABS: Basophils # (auto) 0.1 10 ^3/uL (0-0.2); Basophils % (auto) 1.5 % (0.0-2.0); Eosinophils # (auto) 0.3 10 ^3/uL (0-0.8); Eosinophils % (auto) 6.9 % (0.0-7.0); Hematocrit 27.6 % (41.0-53.0); Hemoglobin 9.5 g/dL (13.5-17.5); Lymphocytes # (auto) 0.6 10 ^3/uL (0.4-5.4); Lymphocytes % (auto) 15.1 % (10.0-50.0); Mean Corpuscular Hemoglobin 33.4 pg (28.0-32.0); Mean Corpuscular Hgb Conc. 34.4 g/dL (32.0-36.0); Monocytes # (auto) 0.4 10 ^3/uL (0-1.3); Monocytes % (auto) 9.7 % (0.0-12.0); Neutrophils # (auto) 2.8 10 ^3/uL (1.6-8.6); Neutrophils % (auto) 66.8 % (37.0-80.0); Red Blood Cells 2.85 10^6/uL (4.5-5.90); Red Cell Distribution Width 14.7 % (11.8-14.3); White Blood Cell 4.2 10^3/uL (4.4-10.8)
[2021-07-18 23:47] LABS: INR 1.11 (0.9-1.15); Partial Thromboplastin Time 28.8 sec (23.6-33.0)
[2021-07-18 23:49] LABS: Albumin 3.1 g/dL (3.4-5.0); BUN/Creatinine Ratio 5.8; Calcium 7.8 mg/dL (8.5-10.1)
[2021-07-18 23:53] LABS: Bilirubin, Total 0.7 mg/dL (0.2-1.0); Total Protein 7.3 g/dL (6.4-8.2)
[2021-07-19] MEDS ORDERED: hydrALAZINE HCL 20 MG/ML VL IV PRN (03:00)
[2021-07-19] MEDS ORDERED: ONDANSETRON HCL 4 MG/2 ML VIAL IV PRN (03:00)
[2021-07-19] MEDS ORDERED: ACETAMINOPHEN 325 MG TAB PO PRN (03:00)
[2021-07-19] MEDS ORDERED: HEPARIN SODIUM (PORCINE) 5000 UNITS/ML 1ML VIAL IV SCH ×2 (06:00→10:00)
[2021-07-19] MEDS ORDERED: ASPirin 81 mg TAB PO SCH (10:00)
[2021-07-19] MEDS ORDERED: CINACALCET HYDROCHLORIDE 30 MG TAB PO SCH (10:00)
[2021-07-19] MEDS ORDERED: METOPROLOL SUCCINATE XL 50 MG TAB PO SCH (10:00)
[2021-07-19] MEDS ORDERED: CALCIUM ACETATE 667 MG CAP PO SCH (12:00)
[2021-07-19 13:10] VITALS: BP 167/96
[2021-07-19] MEDS ORDERED: HEPARIN SODIUM (PORCINE) 5000 UNITS/ML 1ML VIAL SC SCH (13:30)
[2021-07-19] MEDS ORDERED: PANT40TA2 PO (13:55)
[2021-07-19] MEDS ORDERED: PATIENTS OWN MEDICATION (Aripiprazole (Abilify) 10 MG) PO SCH (18:00)
[2021-07-19] MEDS ORDERED: traZODone HCL 50 MG TAB PO SCH (22:00)
[2021-07-19] MEDS ORDERED: ZOLPIDEM TARTRATE 5 MG TAB PO SCH (22:00)
[2021-07-20] MEDS ORDERED: LEVOTHYROXINE SODIUM 100 MCG TAB PO SCH (07:00)
[2021-07-20] MEDS ORDERED: B-COMPLEX W/ C & FOLIC ACID(NEPHROVITE TAB) PO SCH (10:00)
[2021-07-20] MEDS ORDERED: NIFEdipine ER 30 MG TAB PO SCH (10:00)
[2021-07-20] MEDS ORDERED: ATORVASTATIN 20 MG TAB PO SCH (22:00)
== END 2021-07-19 14:14 | disposition home or self-care (01) | DRG 203 ==
LOC: EDBD 21:41 → ER 21:41 → TELE 07-19 02:49
PROVIDERS: ADMIT Internal Medicine; ATTEND Internal Medicine
DX: R07.89 Other chest pain (principal); I13.2 Hypertensive heart and chronic kidney disease with heart failure and with stage 5 chronic kidney disease, or end stage renal disease; N18.6 End stage renal disease; E11.22 Type 2 diabetes mellitus with diabetic chronic kidney disease; E78.5 Hyperlipidemia, unspecified; D64.9 Anemia, unspecified; K21.9 Gastro-esophageal reflux disease without esophagitis; I50.9 Heart failure, unspecified; J44.9 Chronic obstructive pulmonary disease, unspecified; I08.0 Rheumatic disorders of both mitral and aortic valves; F32.9 Major depressive disorder, single episode, unspecified; F41.9 Anxiety disorder, unspecified; Z20.822 Contact with and (suspected) exposure to COVID-19; Z82.49 Family history of ischemic heart disease and other diseases of the circulatory system; Z83.3 Family history of diabetes mellitus; Z91.19 Patient's noncompliance with other medical treatment and regimen; Z99.2 Dependence on renal dialysis; Z88.5 Allergy status to narcotic agent; Z88.0 Allergy status to penicillin; Z88.2 Allergy status to sulfonamides; Z90.49 Acquired absence of other specified parts of digestive tract; Z84.1 Family history of disorders of kidney and ureter
CPT/HCPCS: 36415; 71045; 80053; 83036; 83690; 83880; 84484; 85025; 85610; 85730; 87426; 93005; 93306; 96365; G0378; J2405

== ENCOUNTER 2022-04-05 13:17 | Emergency (ER) | payer MEDICAID ==
[~2022-04-05] VITALS: Ht 172.7 cm; Wt 81.6 kg
[~2022-04-05 13:17] MED LIST changes: +PANT40TA2 PO
[2022-04-05 14:22] VITALS: BP 116/79
[2022-04-05] MEDS ORDERED: DIPH25CA66 PO (14:43)
[2022-04-05] MEDS ORDERED: CIP03OS EACHEYE (14:43)
== END 2022-04-05 14:51 | disposition home or self-care (01) ==
LOC: ER 13:17
DX: T78.40XA Allergy, unspecified, initial encounter (principal); H11.33 Conjunctival hemorrhage, bilateral; I13.2 Hypertensive heart and chronic kidney disease with heart failure and with stage 5 chronic kidney disease, or end stage renal disease; N18.6 End stage renal disease; I50.9 Heart failure, unspecified; J44.9 Chronic obstructive pulmonary disease, unspecified; E78.5 Hyperlipidemia, unspecified; Z88.0 Allergy status to penicillin; Z88.2 Allergy status to sulfonamides; Z88.6 Allergy status to analgesic agent; X58.XXXA Exposure to other specified factors, initial encounter

== ENCOUNTER 2022-04-08 17:33 | Inpatient (IN) | payer MEDICAID ==
[~2022-04-08] VITALS: Ht 162.6 cm; Wt 73.5 kg
[~2022-04-08 17:33] MED LIST changes: +CIP03OS EACHEYE; +DIPH25CA66 PO
[2022-04-08] MEDS ORDERED: HEPARIN SODIUM (PORCINE) 5000 UNITS/ML 1ML VIAL IV ONE (17:45)
[2022-04-08] MEDS ORDERED: ADENOSINE 6 MG/2 ML INJ IV ONE (17:50)
[2022-04-08] MEDS ORDERED: niCARdipine 25 MG/10 ML VIAL IV ONE (17:50)
[2022-04-08] MEDS ORDERED: ANGIOMAX 250 MG VIAL IV ONE ×2 (17:51→19:22)
[2022-04-08] MEDS ORDERED: MIDAZOLAM HCL 2MG/2ML 2ml VIAL (1mg/ml) ONE ×2 (17:52→19:23)
[2022-04-08] MEDS ORDERED: fentaNYL CITRATE 100 MCG/2 ML VL ONE ×2 (17:52→19:22)
[2022-04-08] MEDS ORDERED: SODIUM CHL 0.9% 0 ML ONE (17:52)
[2022-04-08 18:10] LABS: Basophils # (auto) 0 10 ^3/uL (0-0.2); Basophils % (auto) 0.4 % (0.0-2.0); Eosinophils # (auto) 0 10 ^3/uL (0-0.8); Lymphocytes # (auto) 0.4 10 ^3/uL (0.4-5.4); Neutrophils # (auto) 8.6 10 ^3/uL (1.6-8.6); White Blood Cell 9.9 10^3/uL (4.4-10.8)
[2022-04-08 18:11] LABS: Eosinophils % (auto) 0.2 % (0.0-7.0); Hematocrit 36.3 % (41.0-53.0); Hemoglobin 12.7 g/dL (13.5-17.5); Mean Corpuscular Hemoglobin 34.2 pg (28.0-32.0); Mean Corpuscular Hgb Conc. 35.1 g/dL (32.0-36.0); Mean Corpuscular Volume 97.6 fL (80.0-100.0); Monocytes # (auto) 0.9 10 ^3/uL (0-1.3); Monocytes % (auto) 8.7 % (0.0-12.0); Neutrophils % (auto) 86.7 % (37.0-80.0); Nucleated Red Blood Cells % 0.2 %; Red Blood Cells 3.71 10^6/uL (4.5-5.90); Red Cell Distribution Width 13.3 % (11.8-14.3)
[2022-04-08 18:26] LABS: Albumin 2.9 g/dL (3.4-5.0); Calcium 8.8 mg/dL (8.5-10.1); Potassium 4.1 mmol/L (3.5-5.1)
[2022-04-08 18:30] LABS: BUN/Creatinine Ratio 4.9; Bilirubin, Total 1.5 mg/dL (0.2-1.0); Total Protein 7.2 g/dL (6.4-8.2)
[2022-04-08] MEDS ORDERED: HEPARIN DRIP/D5W 100UNITS/ML 250 ML IV SCH (18:30)
[2022-04-08 18:49] LABS: INR 1.16 (0.9-1.15); Partial Thromboplastin Time 33.3 sec (23.6-33.0)
[2022-04-08] MEDS ORDERED: SODIUM CHL 0.9% 50 ML ONE (19:23)
[2022-04-08] MEDS ORDERED: IOHEXOL 350 MG/ML 100ML IJ ONE (19:42)
[2022-04-08] MEDS ORDERED: LIDOCAINE 2%HCL (LOCAL ANESTH.) INJ 10ml MDV ONE (19:42)
[2022-04-08] MEDS ORDERED: EPINEPHrine HCL 1 MG/10 ML SYRG ONE (20:15)
[2022-04-08] MEDS ORDERED: ATROPINE SULF 1 MG/10ml SYR ONE (20:15)
[2022-04-08] MEDS ORDERED: DOPamine 1600MCG/ML D5W 250 ML IV ONE (20:20)
[2022-04-08] MEDS ORDERED: IODIXANOL 320MG/ML 100ML BTL IV ONE (20:33)
[2022-04-08] MEDS ORDERED: FUROSEMIDE 20 MG/2 ML VIAL ONE ×2 (20:33→20:39)
[2022-04-08] MEDS ORDERED: CLOPIDOGREL 300 MG TAB ONE (20:52)
[2022-04-08] MEDS ORDERED: cloNIDine HCL 0.1 MG TAB PO PRN (21:30)
[2022-04-08] MEDS ORDERED: NITROGLYCERIN 0.4 MG SL TAB SL PRN (21:30)
[2022-04-08] MEDS ORDERED: DEXTROSE (50%) 50ML SYRG IV PRN (21:45)
[2022-04-08] MEDS ORDERED: InsuLIN REG 1unit/0.01ml Soln (100units/ml) SC SCH (22:00)
[2022-04-08] MEDS ORDERED: ONDANSETRON HCL 4 MG/2 ML VIAL IV PRN (22:15)
[2022-04-08] MEDS ORDERED: HYDROmorphone HCL 2 MG/ML VL/or syr IV PRN (22:15)
[2022-04-08] MEDS: ACCU-CHEK COMFORT CURVE STRIP VI SCH (22:16)
[2022-04-08] MEDS: KETOROLAC TROMETH 30 MG/ML 1ML VIAL IV PRN (23:03)
[2022-04-08 23:10] VITALS: BP 101/49
[2022-04-09] VITALS (21 sets, daily range): BP systolic 81–128; BP diastolic 47–80
[2022-04-09 04:36] LABS: Eosinophils # (auto) 0 10 ^3/uL (0-0.8); Eosinophils % (auto) 0.3 % (0.0-7.0); Neutrophils # (auto) 5.7 10 ^3/uL (1.6-8.6); Neutrophils % (auto) 83.2 % (37.0-80.0)
[2022-04-09 04:38] LABS: Basophils # (auto) 0 10 ^3/uL (0-0.2); Basophils % (auto) 0.5 % (0.0-2.0); Hematocrit 31.8 % (41.0-53.0); Hemoglobin 11.4 g/dL (13.5-17.5); Lymphocytes # (auto) 0.5 10 ^3/uL (0.4-5.4); Lymphocytes % (auto) 7.8 % (10.0-50.0); Mean Corpuscular Volume 97.3 fL (80.0-100.0); Monocytes # (auto) 0.6 10 ^3/uL (0-1.3); Monocytes % (auto) 8.2 % (0.0-12.0); Red Blood Cells 3.27 10^6/uL (4.5-5.90); Red Cell Distribution Width 12.9 % (11.8-14.3); White Blood Cell 6.8 10^3/uL (4.4-10.8)
[2022-04-09 04:45] LABS: INR 1.25 (0.9-1.15); Partial Thromboplastin Time 55.2 sec (23.6-33.0)
[2022-04-09 04:53] LABS: Potassium 3.7 mmol/L (3.5-5.1)
[2022-04-09 05:03] LABS: Albumin 2.5 g/dL (3.4-5.0); Calcium 8.5 mg/dL (8.5-10.1)
[2022-04-09 05:05] LABS: Bilirubin, Total 1.1 mg/dL (0.2-1.0); Total Protein 6.6 g/dL (6.4-8.2)
[2022-04-09] MEDS: ACCU-CHEK COMFORT CURVE STRIP VI SCH ×2 (06:02→11:17)
[2022-04-09] MEDS: InsuLIN REG 1unit/0.01ml Soln (100units/ml) SC SCH ×2 (06:02→11:17)
[2022-04-09] MEDS: KETOROLAC TROMETH 30 MG/ML 1ML VIAL IV PRN ×2 (07:02→20:09)
[2022-04-09] MEDS ORDERED: CLOPIDOGREL BISULFATE 75 MG TAB PO SCH (10:00)
[2022-04-09] MEDS ORDERED: ASPirin 81 mg TAB PO SCH (10:00)
[2022-04-09 11:44] LABS: INR 3.05 (0.9-1.15); Partial Thromboplastin Time 52.1 sec (23.6-33.0)
[2022-04-09] MEDS ORDERED: HYDROmorphone HCL 2 MG/ML VL/or syr IV PRN (15:00)
[2022-04-09] MEDS ORDERED: B-COMPLEX W/ C & FOLIC ACID(NEPHROVITE TAB) PO ONE (15:15)
[2022-04-09] MEDS: CIPROFLOXACIN 0.3%OPTH(EYE) SOL 5ML EACHEYE SCH ×2 (18:19→23:46)
[2022-04-09] MEDS: ATORVASTATIN 20 MG TAB PO SCH (21:50)
[2022-04-09] MEDS: traZODone HCL 50 MG TAB PO SCH (21:51)
[2022-04-10] VITALS (11 sets, daily range): BP systolic 84–122; BP diastolic 47–74
[2022-04-10 03:55] LABS: Basophils # (auto) 0 10 ^3/uL (0-0.2); Basophils % (auto) 0.2 % (0.0-2.0); Eosinophils # (auto) 0.1 10 ^3/uL (0-0.8); Eosinophils % (auto) 0.7 % (0.0-7.0); Hematocrit 30.3 % (41.0-53.0); Hemoglobin 10.9 g/dL (13.5-17.5); Lymphocytes # (auto) 0.3 10 ^3/uL (0.4-5.4); Lymphocytes % (auto) 2.9 % (10.0-50.0); Mean Corpuscular Hemoglobin 35.2 pg (28.0-32.0); Mean Corpuscular Hgb Conc. 35.9 g/dL (32.0-36.0); Monocytes # (auto) 0.4 10 ^3/uL (0-1.3); Monocytes % (auto) 4.8 % (0.0-12.0); Neutrophils # (auto) 8.2 10 ^3/uL (1.6-8.6); Neutrophils % (auto) 91.4 % (37.0-80.0); Red Blood Cells 3.09 10^6/uL (4.5-5.90); Red Cell Distribution Width 13.1 % (11.8-14.3); White Blood Cell 8.9 10^3/uL (4.4-10.8)
[2022-04-10] MEDS: KETOROLAC TROMETH 30 MG/ML 1ML VIAL IV PRN (04:04)
[2022-04-10 04:10] LABS: BUN/Creatinine Ratio 6.1; Calcium 8.7 mg/dL (8.5-10.1); Potassium 4.2 mmol/L (3.5-5.1)
[2022-04-10] MEDS: CIPROFLOXACIN 0.3%OPTH(EYE) SOL 5ML EACHEYE SCH ×3 (05:18→18:00)
[2022-04-10] MEDS: CLOPIDOGREL BISULFATE 75 MG TAB PO SCH (09:45)
[2022-04-10] MEDS: B-COMPLEX W/ C & FOLIC ACID(NEPHROVITE TAB) PO SCH (09:45)
[2022-04-10] MEDS: ASPirin 81 mg TAB PO SCH (09:46)
[2022-04-10] MEDS ORDERED: BENZTROPINE MESY 0.5 MG TAB PO SCH (10:00)
[2022-04-10] MEDS ORDERED: LEVOTHYROXINE SODIUM 50 MCG TAB PO ONE (13:00)
[2022-04-10] MEDS: ATORVASTATIN 20 MG TAB PO SCH (21:46)
[2022-04-10] MEDS: traZODone HCL 50 MG TAB PO SCH (21:46)
[2022-04-11] VITALS (36 sets, daily range): BP systolic 93–157; BP diastolic 47–78
[2022-04-11] MEDS: CIPROFLOXACIN 0.3%OPTH(EYE) SOL 5ML EACHEYE SCH ×4 (01:06→18:36)
[2022-04-11 06:02] LABS: BUN/Creatinine Ratio 6.8; Calcium 9.4 mg/dL (8.5-10.1)
[2022-04-11] MEDS ORDERED: LEVOTHYROXINE SODIUM 50 MCG TAB PO SCH (07:00)
[2022-04-11 09:38] LABS: INR 1.33 (0.9-1.15); Partial Thromboplastin Time 48.1 sec (23.6-33.0)
[2022-04-11] MEDS: B-COMPLEX W/ C & FOLIC ACID(NEPHROVITE TAB) PO SCH (10:00)
[2022-04-11] MEDS ORDERED: VANCOMYCIN PER PHARMACY 0 MG IV SCH (13:15)
[2022-04-11] MEDS ORDERED: MEROPENEM 1GM IVPB 100 ML IV ONE (13:15)
[2022-04-11] MEDS ORDERED: VANCOMYCIN 1GM/250ML 250 ML IV ONE (13:45)
[2022-04-11] MEDS: ASPirin 81 mg TAB PO SCH (18:35)
[2022-04-11] MEDS: CLOPIDOGREL BISULFATE 75 MG TAB PO SCH (18:36)
[2022-04-11] MEDS ORDERED: MEROPENEM 1GM IVPB 100 ML IV SCH (22:00)
[2022-04-11] MEDS: ATORVASTATIN 20 MG TAB PO SCH (22:02)
[2022-04-11] MEDS: MEROPENEM 500MG IVPB 50 ML IV SCH (22:05)
[2022-04-12] VITALS (99 sets, daily range): BP systolic 94–160; BP diastolic 25–82
[2022-04-12] MEDS: CIPROFLOXACIN 0.3%OPTH(EYE) SOL 5ML EACHEYE SCH ×4 (00:42→18:24)
[2022-04-12 04:14] LABS: Hematocrit 35.4 % (41.0-53.0); Hemoglobin 12.3 g/dL (13.5-17.5); Mean Corpuscular Hemoglobin 34.3 pg (28.0-32.0); Mean Corpuscular Hgb Conc. 34.8 g/dL (32.0-36.0); Mean Corpuscular Volume 98.7 fL (80.0-100.0); Red Blood Cells 3.59 10^6/uL (4.5-5.90); Red Cell Distribution Width 13.8 % (11.8-14.3); White Blood Cell 10.6 10^3/uL (4.4-10.8)
[2022-04-12 04:31] LABS: Albumin 2.2 g/dL (3.4-5.0); BUN/Creatinine Ratio 7.5; Calcium 9.4 mg/dL (8.5-10.1)
[2022-04-12 04:34] LABS: Bilirubin, Total 1.3 mg/dL (0.2-1.0)
[2022-04-12] MEDS: MEROPENEM 500MG IVPB 50 ML IV SCH ×2 (09:49→22:23)
[2022-04-12] MEDS: B-COMPLEX W/ C & FOLIC ACID(NEPHROVITE TAB) PO SCH (09:49)
[2022-04-12] MEDS: ASPirin 81 mg TAB PO SCH (09:49)
[2022-04-12] MEDS: CLOPIDOGREL BISULFATE 75 MG TAB PO SCH (09:49)
[2022-04-12] MEDS ORDERED: TPN PER PHARMACY 0 ML IV SCH (13:00)
[2022-04-12] MEDS ORDERED: VANCOMYCIN 1GM/250ML 250 ML IV ONE ×3 (15:00→18:00)
[2022-04-12] MEDS ORDERED: ROCURONIUM 10MG/ML 10ML VIAL IV ONE (15:29)
[2022-04-12] MEDS ORDERED: ETOMIDATE (2MG/ML) 20ML VIAL IV ONE (15:30)
[2022-04-12] MEDS ORDERED: SUCCINYLCHOLINE CHLORIDE 20 MG/ML 10ML VIAL IV ONE (15:30)
[2022-04-12] MEDS ORDERED: MIDAZOLAM HCL 5 MG/ML-1ML VIAL ONE (15:31)
[2022-04-12] MEDS: MIDAZOLAM DRIP 50 mg/50mL 50 ML IV SCH (15:45)
[2022-04-12] MEDS ORDERED: MIDAZOLAM HCL 5 MG/ML-1ML VIAL IV ONE (15:45)
[2022-04-12] MEDS ORDERED: fentaNYL Drip 2500mCg/250mlNS 250 ML IV ONE (15:45)
[2022-04-12] MEDS: fentaNYL Drip 2500mCg/250mlNS 250 ML IV SCH ×2 (15:45→22:23)
[2022-04-12] MEDS ORDERED: MIDAZOLAM DRIP 50 mg/50mL 50 ML IV ONE (15:45)
[2022-04-12 15:57] LABS: BUN/Creatinine Ratio 7.6; Calcium 9.8 mg/dL (8.5-10.1); Potassium 5.3 mmol/L (3.5-5.1)
[2022-04-12] MEDS ORDERED: LIDOCAINE 1% (LOCAL ANESTH.) PF 5ml SDV ID ONE (16:30)
[2022-04-12] MEDS ORDERED: DEXTROSE (50%) 50ML SYRG IV SCH (18:00)
[2022-04-12] MEDS: InsuLIN REG 1unit/0.01ml Soln (100units/ml) SC SCH (18:00)
[2022-04-12] MEDS: ACCU-CHEK COMFORT CURVE STRIP VI SCH (18:25)
[2022-04-12] MEDS ORDERED: AMINO ACID INFUSION IN D10W 1,000 ML IV NR (20:00)
[2022-04-12] MEDS: SODIUM CHLOR 0.9% PF (SALINE LOCK) 10ML VIAL/SYR IV SCH (22:23)
[2022-04-12] MEDS: ATORVASTATIN 20 MG TAB PO SCH (22:23)
[2022-04-13] VITALS (96 sets, daily range): BP systolic 86–116; BP diastolic 29–64
[2022-04-13] MEDS: CIPROFLOXACIN 0.3%OPTH(EYE) SOL 5ML EACHEYE SCH ×4 (00:03→17:31)
[2022-04-13] MEDS: ACCU-CHEK COMFORT CURVE STRIP VI SCH ×4 (00:03→17:31)
[2022-04-13] MEDS: InsuLIN REG 1unit/0.01ml Soln (100units/ml) SC SCH ×4 (00:04→17:31)
[2022-04-13 04:56] LABS: Albumin 1.9 g/dL (3.4-5.0); Calcium 9.2 mg/dL (8.5-10.1); Magnesium 3.8 mg/dL (1.6-2.6)
[2022-04-13 04:59] LABS: BUN/Creatinine Ratio 8.1; Bilirubin, Total 0.9 mg/dL (0.2-1.0); Total Protein 6.8 g/dL (6.4-8.2)
[2022-04-13 05:11] LABS: Potassium 5.8 mmol/L (3.5-5.1)
[2022-04-13 05:37] LABS: Phosphorus 6.4 mg/dL (2.5-4.90)
[2022-04-13] MEDS ORDERED: NOREPINEPHRINE 8 MG/250ML KIT 250 ML IV ONE (06:52)
[2022-04-13] MEDS ORDERED: SODIUM CHL 0.9% 1000 ML BAG XX ONE (07:15)
[2022-04-13] MEDS: NOREPINEPHRINE 8 MG/250ML KIT 250 ML IV SCH ×2 (08:15→17:56)
[2022-04-13] MEDS: B-COMPLEX W/ C & FOLIC ACID(NEPHROVITE TAB) PO SCH (10:00)
[2022-04-13] MEDS: ASPirin 81 mg TAB PO SCH (10:05)
[2022-04-13] MEDS: CLOPIDOGREL BISULFATE 75 MG TAB PO SCH (10:05)
[2022-04-13] MEDS: MEROPENEM 500MG IVPB 50 ML IV SCH ×2 (10:05→22:13)
[2022-04-13] MEDS: SODIUM CHLOR 0.9% PF (SALINE LOCK) 10ML VIAL/SYR IV SCH ×2 (10:06→22:13)
[2022-04-13] MEDS: MIDAZOLAM DRIP 50 mg/50mL 50 ML IV SCH ×2 (11:01→18:50)
[2022-04-13] MEDS ORDERED: VANCOMYCIN 1GM/250ML 250 ML IV ONE (14:45)
[2022-04-13] MEDS ORDERED: CLINDAMYCIN 600MG IV 50 ML IV ONE (16:30)
[2022-04-13] MEDS: fentaNYL Drip 2500mCg/250mlNS 250 ML IV SCH (17:56)
[2022-04-13] MEDS ORDERED: TPN PER PHARMACY IV NR ×3 (20:00)
[2022-04-13] MEDS: ATORVASTATIN 20 MG TAB PO SCH (22:13)
[2022-04-14] VITALS (96 sets, daily range): BP systolic 76–171; BP diastolic 19–57
[2022-04-14] MEDS: CIPROFLOXACIN 0.3%OPTH(EYE) SOL 5ML EACHEYE SCH ×4 (01:24→18:00)
[2022-04-14] MEDS: CLINDAMYCIN 600MG IV 50 ML IV SCH ×2 (01:25→09:45)
[2022-04-14] MEDS: NOREPINEPHRINE 8 MG/250ML KIT 250 ML IV SCH (02:50)
[2022-04-14] MEDS: MIDAZOLAM DRIP 50 mg/50mL 50 ML IV SCH ×3 (03:50→21:55)
[2022-04-14 04:24] LABS: Albumin 1.9 g/dL (3.4-5.0); BUN/Creatinine Ratio 7.7; Calcium 8.6 mg/dL (8.5-10.1); Magnesium 2.9 mg/dL (1.6-2.6); Potassium 4.4 mmol/L (3.5-5.1)
[2022-04-14 04:31] LABS: Bilirubin, Total 0.9 mg/dL (0.2-1.0); Phosphorus 6.7 mg/dL (2.5-4.90); Total Protein 6.6 g/dL (6.4-8.2)
[2022-04-14] MEDS: InsuLIN REG 1unit/0.01ml Soln (100units/ml) SC SCH ×5 (06:00→23:30)
[2022-04-14] MEDS: ACCU-CHEK COMFORT CURVE STRIP VI SCH ×5 (06:11→23:30)
[2022-04-14] MEDS ORDERED: SODIUM CHL 0.9% 1000 ML BAG XX ONE (07:00)
[2022-04-14] MEDS: B-COMPLEX W/ C & FOLIC ACID(NEPHROVITE TAB) PO SCH (10:00)
[2022-04-14] MEDS: SODIUM CHLOR 0.9% PF (SALINE LOCK) 10ML VIAL/SYR IV SCH ×2 (10:05→21:55)
[2022-04-14] MEDS: CLOPIDOGREL BISULFATE 75 MG TAB PO SCH (10:15)
[2022-04-14] MEDS: ASPirin 81 mg TAB PO SCH (10:15)
[2022-04-14] MEDS: MEROPENEM 500MG IVPB 50 ML IV SCH ×2 (11:27→21:54)
[2022-04-14] MEDS ORDERED: NOREPINEPHRINE 8 MG/250ML KIT 250 ML IV ONE (12:38)
[2022-04-14] MEDS: NOREPINEPHRINE BITARTRATE 16 MG in SODIUM CHL 0.9% 234 ML IV SCH (14:11)
[2022-04-14] MEDS: fentaNYL Drip 2500mCg/250mlNS 250 ML IV SCH (15:00)
[2022-04-14] MEDS ORDERED: Nepro With Carb Steady 1 Liter Bottle GT SCH (15:00)
[2022-04-14] MEDS ORDERED: TPN PER PHARMACY IV NR ×6 (20:00)
[2022-04-14] MEDS: ATORVASTATIN 20 MG TAB PO SCH (21:53)
[2022-04-15] VITALS (103 sets, daily range): BP systolic 86–153; BP diastolic 12–68
[2022-04-15] MEDS: CIPROFLOXACIN 0.3%OPTH(EYE) SOL 5ML EACHEYE SCH ×3 (00:19→11:43)
[2022-04-15 04:11] LABS: Basophils # (auto) 0 10 ^3/uL (0-0.2); Basophils % (auto) 0.4 % (0.0-2.0); Eosinophils # (auto) 0.2 10 ^3/uL (0-0.8); Eosinophils % (auto) 2.4 % (0.0-7.0); Hematocrit 31.1 % (41.0-53.0); Hemoglobin 10.6 g/dL (13.5-17.5); Lymphocytes # (auto) 0.7 10 ^3/uL (0.4-5.4); Lymphocytes % (auto) 6.6 % (10.0-50.0); Mean Corpuscular Hemoglobin 33.5 pg (28.0-32.0); Mean Corpuscular Hgb Conc. 33.9 g/dL (32.0-36.0); Mean Corpuscular Volume 98.8 fL (80.0-100.0); Monocytes # (auto) 0.8 10 ^3/uL (0-1.3); Monocytes % (auto) 7.5 % (0.0-12.0); Neutrophils # (auto) 8.5 10 ^3/uL (1.6-8.6); Neutrophils % (auto) 83.1 % (37.0-80.0); Red Blood Cells 3.15 10^6/uL (4.5-5.90); Red Cell Distribution Width 14.5 % (11.8-14.3); White Blood Cell 10.2 10^3/uL (4.4-10.8)
[2022-04-15 04:20] LABS: Alanine Aminotransferase 43 U/L (16-61); Albumin 1.7 g/dL (3.4-5.0); Anion Gap 16 (5-15); Aspartate Aminotransferase 82 U/L (15-37); BUN/Creatinine Ratio 8.6; Calcium 8.6 mg/dL (8.5-10.1); Carbon Dioxide 20 mmol/L (21-32); Chloride 98 mmol/L (98-107); GFR African American 7 mL/min; GFR Non-African American 5 mL/min; Glucose 122 mg/dL (74-106); Magnesium 2.6 mg/dL (1.6-2.6); Sodium 134 mmol/L (136-145)
[2022-04-15 04:23] LABS: Alkaline Phosphatase 197 U/L (45-117); Total Protein 6.3 g/dL (6.4-8.2)
[2022-04-15 04:52] LABS: Blood Urea Nitrogen 92 mg/dL (7-18)
[2022-04-15] MEDS: InsuLIN REG 1unit/0.01ml Soln (100units/ml) SC SCH ×4 (06:00→23:39)
[2022-04-15] MEDS: ACCU-CHEK COMFORT CURVE STRIP VI SCH ×4 (06:06→23:40)
[2022-04-15] MEDS: NOREPINEPHRINE BITARTRATE 16 MG in SODIUM CHL 0.9% 234 ML IV SCH (07:58)
[2022-04-15] MEDS: CLOPIDOGREL BISULFATE 75 MG TAB PO SCH (10:00)
[2022-04-15] MEDS: ASPirin 81 mg TAB PO SCH (10:00)
[2022-04-15] MEDS: MIDAZOLAM DRIP 50 mg/50mL 50 ML IV SCH ×3 (10:26→16:18)
[2022-04-15] MEDS: B-COMPLEX W/ C & FOLIC ACID(NEPHROVITE TAB) PO SCH (10:27)
[2022-04-15] MEDS: MEROPENEM 500MG IVPB 50 ML IV SCH (10:27)
[2022-04-15] MEDS: SODIUM CHLOR 0.9% PF (SALINE LOCK) 10ML VIAL/SYR IV SCH ×2 (10:27→21:41)
[2022-04-15 10:37] LABS: INR 1.21 (0.9-1.15); Partial Thromboplastin Time 41.3 sec (23.6-33.0)
[2022-04-15] MEDS ORDERED: ACETAMINOPHEN 325 MG TAB PO ONE (11:06)
[2022-04-15] MEDS: fentaNYL Drip 2500mCg/250mlNS 250 ML IV SCH (16:36)
[2022-04-15] MEDS ORDERED: TPN PER PHARMACY IV NR ×8 (20:00)
[2022-04-15] MEDS: ATORVASTATIN 20 MG TAB PO SCH (21:40)
[2022-04-16] VITALS (100 sets, daily range): BP systolic 82–160; BP diastolic 20–74
[2022-04-16] MEDS: NOREPINEPHRINE BITARTRATE 16 MG in SODIUM CHL 0.9% 234 ML IV SCH (02:14)
[2022-04-16 04:43] LABS: Basophils # (auto) 0.2 10 ^3/uL (0-0.2); Basophils % (auto) 1.5 % (0.0-2.0); Eosinophils # (auto) 0.2 10 ^3/uL (0-0.8); Eosinophils % (auto) 1.8 % (0.0-7.0); Lymphocytes # (auto) 0.8 10 ^3/uL (0.4-5.4); Lymphocytes % (auto) 6.6 % (10.0-50.0); Mean Corpuscular Hemoglobin 32.9 pg (28.0-32.0); Mean Corpuscular Hgb Conc. 33.4 g/dL (32.0-36.0); Mean Corpuscular Volume 98.3 fL (80.0-100.0); Monocytes # (auto) 0.7 10 ^3/uL (0-1.3); Monocytes % (auto) 6.4 % (0.0-12.0); Neutrophils # (auto) 9.6 10 ^3/uL (1.6-8.6); Neutrophils % (auto) 83.7 % (37.0-80.0); Nucleated Red Blood Cells % 0.3 %; Red Blood Cells 3.06 10^6/uL (4.5-5.90); Red Cell Distribution Width 14.3 % (11.8-14.3); White Blood Cell 11.4 10^3/uL (4.4-10.8)
[2022-04-16 04:47] LABS: Calcium 9.4 mg/dL (8.5-10.1); Potassium 4.6 mmol/L (3.5-5.1)
[2022-04-16 04:49] LABS: BUN/Creatinine Ratio 8.5
[2022-04-16] MEDS: InsuLIN REG 1unit/0.01ml Soln (100units/ml) SC SCH ×4 (05:35→23:59)
[2022-04-16] MEDS: ACCU-CHEK COMFORT CURVE STRIP VI SCH ×4 (05:36→23:58)
[2022-04-16] MEDS: CLOPIDOGREL BISULFATE 75 MG TAB PO SCH (08:29)
[2022-04-16] MEDS: ASPirin 81 mg TAB PO SCH (10:00)
[2022-04-16] MEDS: SODIUM CHLOR 0.9% PF (SALINE LOCK) 10ML VIAL/SYR IV SCH ×2 (10:00→21:48)
[2022-04-16] MEDS: B-COMPLEX W/ C & FOLIC ACID(NEPHROVITE TAB) PO SCH (10:00)
[2022-04-16] MEDS: MEROPENEM 500MG IVPB 50 ML IV SCH (10:03)
[2022-04-16] MEDS ORDERED: PANTOPRAZOLE 40 MG/10 ML VIAL INJ IV ONE (11:15)
[2022-04-16] MEDS ORDERED: MIDAZOLAM HCL 2MG/2ML 2ml VIAL (1mg/ml) ONE (12:56)
[2022-04-16] MEDS ORDERED: DexAMETHasone SOD PHOS 10MG/1ML VIAL INJ ONE ×2 (12:56→13:36)
[2022-04-16] MEDS ORDERED: HYDROmorphone HCL 2 MG/ML VL/or syr ONE (12:56)
[2022-04-16] MEDS ORDERED: fentaNYL CITRATE 100 MCG/2 ML VL ONE (12:56)
[2022-04-16] MEDS ORDERED: ROCURONIUM 10MG/ML 10ML VIAL IV ONE (12:56)
[2022-04-16] MEDS ORDERED: KETAMINE HCL 10 ML ONE (13:00)
[2022-04-16] MEDS: fentaNYL Drip 2500mCg/250mlNS 250 ML IV SCH (13:19)
[2022-04-16] MEDS ORDERED: LIDOCAINE 1%-Mpf/Epinephrine 1:200,000 ONE (13:20)
[2022-04-16] MEDS ORDERED: POVIDONE IODINE 10 % TOPICAL OINT 30GM TOP ONE (14:05)
[2022-04-16] MEDS: ATORVASTATIN 20 MG TAB PO SCH (21:48)
[2022-04-17] VITALS (107 sets, daily range): BP systolic 79–179; BP diastolic 31–75
[2022-04-17 04:31] LABS: Basophils # (auto) 0 10 ^3/uL (0-0.2); Basophils % (auto) 0.1 % (0.0-2.0); Eosinophils # (auto) 0 10 ^3/uL (0-0.8); Eosinophils % (auto) 0.1 % (0.0-7.0); Hematocrit 30.8 % (41.0-53.0); Hemoglobin 10.5 g/dL (13.5-17.5); Lymphocytes # (auto) 0.5 10 ^3/uL (0.4-5.4); Lymphocytes % (auto) 5.9 % (10.0-50.0); Mean Corpuscular Hemoglobin 33.3 pg (28.0-32.0); Mean Corpuscular Volume 97.9 fL (80.0-100.0); Monocytes # (auto) 0.2 10 ^3/uL (0-1.3); Monocytes % (auto) 2.3 % (0.0-12.0); Neutrophils # (auto) 8.2 10 ^3/uL (1.6-8.6); Neutrophils % (auto) 91.6 % (37.0-80.0); Nucleated Red Blood Cells % 0.1 %; Red Blood Cells 3.14 10^6/uL (4.5-5.90); Red Cell Distribution Width 14.2 % (11.8-14.3)
[2022-04-17 04:36] LABS: Albumin 1.8 g/dL (3.4-5.0)
[2022-04-17 04:38] LABS: BUN/Creatinine Ratio 9.5; Calcium 9.7 mg/dL (8.5-10.1)
[2022-04-17 04:44] LABS: Bilirubin, Total 1.1 mg/dL (0.2-1.0); Total Protein 7.6 g/dL (6.4-8.2)
[2022-04-17 04:50] LABS: Potassium 6.5 mmol/L (3.5-5.1)
[2022-04-17] MEDS: InsuLIN REG 1unit/0.01ml Soln (100units/ml) SC SCH ×3 (05:20→17:52)
[2022-04-17] MEDS: ACCU-CHEK COMFORT CURVE STRIP VI SCH ×3 (05:20→17:52)
[2022-04-17] MEDS: SODIUM CHLOR 0.9% PF (SALINE LOCK) 10ML VIAL/SYR IV SCH ×2 (11:01→23:15)
[2022-04-17] MEDS: PANTOPRAZOLE 40 MG/10 ML VIAL INJ IV SCH (11:01)
[2022-04-17] MEDS: CLOPIDOGREL BISULFATE 75 MG TAB PO SCH (11:02)
[2022-04-17] MEDS: B-COMPLEX W/ C & FOLIC ACID(NEPHROVITE TAB) PO SCH (11:02)
[2022-04-17] MEDS: ASPirin 81 mg TAB PO SCH (11:02)
[2022-04-17] MEDS: MEROPENEM 500MG IVPB 50 ML IV SCH (11:04)
[2022-04-17] MEDS: NOREPINEPHRINE BITARTRATE 16 MG in SODIUM CHL 0.9% 234 ML IV SCH (12:50)
[2022-04-17] MEDS: fentaNYL Drip 2500mCg/250mlNS 250 ML IV SCH (12:56)
[2022-04-17] MEDS ORDERED: LIDOCAINE 1% (LOCAL ANESTH.) PF 5ml SDV ONE (15:16)
[2022-04-17] MEDS ORDERED: ALBUMIN 25% 100 ML IV ONE (17:15)
[2022-04-17] MEDS: ATORVASTATIN 20 MG TAB PO SCH (23:15)
[2022-04-18] VITALS (105 sets, daily range): BP systolic 85–183; BP diastolic 47–86
[2022-04-18] MEDS: ACCU-CHEK COMFORT CURVE STRIP VI SCH ×4 (01:12→17:23)
[2022-04-18 04:26] LABS: Basophils # (auto) 0 10 ^3/uL (0-0.2); Basophils % (auto) 0.2 % (0.0-2.0); Eosinophils # (auto) 0 10 ^3/uL (0-0.8); Eosinophils % (auto) 0.7 % (0.0-7.0); Hematocrit 29.1 % (41.0-53.0); Hemoglobin 10.1 g/dL (13.5-17.5); Lymphocytes # (auto) 0.7 10 ^3/uL (0.4-5.4); Lymphocytes % (auto) 10.1 % (10.0-50.0); Mean Corpuscular Hemoglobin 33.9 pg (28.0-32.0); Mean Corpuscular Hgb Conc. 34.7 g/dL (32.0-36.0); Mean Corpuscular Volume 97.6 fL (80.0-100.0); Monocytes # (auto) 0.5 10 ^3/uL (0-1.3); Monocytes % (auto) 6.7 % (0.0-12.0); Neutrophils # (auto) 5.8 10 ^3/uL (1.6-8.6); Neutrophils % (auto) 82.3 % (37.0-80.0); Nucleated Red Blood Cells % 0.1 %; Red Blood Cells 2.98 10^6/uL (4.5-5.90); Red Cell Distribution Width 14.2 % (11.8-14.3)
[2022-04-18 04:56] LABS: BUN/Creatinine Ratio 10.7; Calcium 9.5 mg/dL (8.5-10.1); Potassium 4.8 mmol/L (3.5-5.1)
[2022-04-18] MEDS: InsuLIN REG 1unit/0.01ml Soln (100units/ml) SC SCH ×4 (05:09→17:35)
[2022-04-18] MEDS: NOREPINEPHRINE BITARTRATE 16 MG in SODIUM CHL 0.9% 234 ML IV SCH (12:30)
[2022-04-18] MEDS ORDERED: METOCLOPRAMIDE HCL 5MG/ml INJ 2ml VIAL IV ONE (12:30)
[2022-04-18] MEDS: B-COMPLEX W/ C & FOLIC ACID(NEPHROVITE TAB) PO SCH (12:47)
[2022-04-18] MEDS: PANTOPRAZOLE 40 MG/10 ML VIAL INJ IV SCH (12:47)
[2022-04-18] MEDS: ASPirin 81 mg TAB PO SCH (12:47)
[2022-04-18] MEDS: SODIUM CHLOR 0.9% PF (SALINE LOCK) 10ML VIAL/SYR IV SCH ×2 (12:48→22:38)
[2022-04-18] MEDS: fentaNYL Drip 2500mCg/250mlNS 250 ML IV SCH (12:48)
[2022-04-18] MEDS: MEROPENEM 500MG IVPB 50 ML IV SCH (12:48)
[2022-04-18] MEDS: CLOPIDOGREL BISULFATE 75 MG TAB PO SCH (12:48)
[2022-04-18] MEDS: METOCLOPRAMIDE HCL 5MG/ml INJ 2ml VIAL IV SCH ×2 (17:42→22:37)
[2022-04-18] MEDS: ATORVASTATIN 20 MG TAB PO SCH (22:37)
[2022-04-19] VITALS (108 sets, daily range): BP systolic 105–178; BP diastolic 27–91
[2022-04-19] MEDS: ACCU-CHEK COMFORT CURVE STRIP VI SCH ×5 (00:22→23:45)
[2022-04-19 04:29] LABS: Basophils # (auto) 0.1 10 ^3/uL (0-0.2); Basophils % (auto) 1.2 % (0.0-2.0); Eosinophils # (auto) 0.1 10 ^3/uL (0-0.8); Eosinophils % (auto) 1.3 % (0.0-7.0); Hematocrit 29.4 % (41.0-53.0); Hemoglobin 10.3 g/dL (13.5-17.5); Lymphocytes # (auto) 0.3 10 ^3/uL (0.4-5.4); Lymphocytes % (auto) 3.7 % (10.0-50.0); Mean Corpuscular Hemoglobin 34.3 pg (28.0-32.0); Monocytes # (auto) 0.3 10 ^3/uL (0-1.3); Monocytes % (auto) 3.5 % (0.0-12.0); Neutrophils # (auto) 7.7 10 ^3/uL (1.6-8.6); Neutrophils % (auto) 90.3 % (37.0-80.0); Red Blood Cells 3.01 10^6/uL (4.5-5.90); White Blood Cell 8.5 10^3/uL (4.4-10.8)
[2022-04-19 04:37] LABS: Potassium 5.3 mmol/L (3.5-5.1)
[2022-04-19 04:41] LABS: BUN/Creatinine Ratio 11.4; Calcium 8.5 mg/dL (8.5-10.1)
[2022-04-19] MEDS: METOCLOPRAMIDE HCL 5MG/ml INJ 2ml VIAL IV SCH ×3 (05:35→22:43)
[2022-04-19] MEDS: InsuLIN REG 1unit/0.01ml Soln (100units/ml) SC SCH ×5 (05:42→23:56)
[2022-04-19] MEDS: PANTOPRAZOLE 40 MG/10 ML VIAL INJ IV SCH (09:38)
[2022-04-19] MEDS: MEROPENEM 500MG IVPB 50 ML IV SCH (09:38)
[2022-04-19] MEDS: B-COMPLEX W/ C & FOLIC ACID(NEPHROVITE TAB) PO SCH (09:39)
[2022-04-19] MEDS: ASPirin 81 mg TAB PO SCH (09:39)
[2022-04-19] MEDS: SODIUM CHLOR 0.9% PF (SALINE LOCK) 10ML VIAL/SYR IV SCH ×2 (09:39→22:00)
[2022-04-19] MEDS: CLOPIDOGREL BISULFATE 75 MG TAB PO SCH (09:39)
[2022-04-19] MEDS: Nepro With Carb Steady 1 Liter Bottle GT SCH (10:01)
[2022-04-19] MEDS: NOREPINEPHRINE BITARTRATE 16 MG in SODIUM CHL 0.9% 234 ML IV SCH (12:30)
[2022-04-19] MEDS: fentaNYL Drip 2500mCg/250mlNS 250 ML IV SCH (15:45)
[2022-04-19] MEDS: ATORVASTATIN 20 MG TAB PO SCH (22:43)
[2022-04-20] VITALS (101 sets, daily range): BP systolic 80–157; BP diastolic 46–89
[2022-04-20 04:16] LABS: Basophils # (auto) 0.2 10 ^3/uL (0-0.2); Basophils % (auto) 1.5 % (0.0-2.0); Eosinophils # (auto) 0.2 10 ^3/uL (0-0.8); Eosinophils % (auto) 1.2 % (0.0-7.0); Hematocrit 33.3 % (41.0-53.0); Hemoglobin 11.5 g/dL (13.5-17.5); Lymphocytes # (auto) 0.4 10 ^3/uL (0.4-5.4); Lymphocytes % (auto) 3.3 % (10.0-50.0); Mean Corpuscular Hgb Conc. 34.7 g/dL (32.0-36.0); Mean Corpuscular Volume 98.1 fL (80.0-100.0); Monocytes # (auto) 0.5 10 ^3/uL (0-1.3); Monocytes % (auto) 4.2 % (0.0-12.0); Neutrophils # (auto) 11.4 10 ^3/uL (1.6-8.6); Neutrophils % (auto) 89.8 % (37.0-80.0); Red Blood Cells 3.39 10^6/uL (4.5-5.90); White Blood Cell 12.7 10^3/uL (4.4-10.8)
[2022-04-20 04:32] LABS: BUN/Creatinine Ratio 11.8; Calcium 9.7 mg/dL (8.5-10.1); Potassium 3.5 mmol/L (3.5-5.1)
[2022-04-20 04:36] LABS: % Iron Saturation 30.3 % (20-55)
[2022-04-20] MEDS: InsuLIN REG 1unit/0.01ml Soln (100units/ml) SC SCH (06:00)
[2022-04-20] MEDS: ACCU-CHEK COMFORT CURVE STRIP VI SCH (06:24)
[2022-04-20] MEDS: METOCLOPRAMIDE HCL 5MG/ml INJ 2ml VIAL IV SCH ×3 (06:24→21:14)
[2022-04-20] MEDS ORDERED: SODIUM CHL 0.9% 1000 ML BAG XX ONE (07:00)
[2022-04-20] MEDS: PANTOPRAZOLE 40 MG/10 ML VIAL INJ IV SCH (09:51)
[2022-04-20] MEDS: CLOPIDOGREL BISULFATE 75 MG TAB PO SCH (09:51)
[2022-04-20] MEDS: ASPirin 81 mg TAB PO SCH (09:51)
[2022-04-20] MEDS: B-COMPLEX W/ C & FOLIC ACID(NEPHROVITE TAB) PO SCH (09:51)
[2022-04-20] MEDS: NOREPINEPHRINE BITARTRATE 16 MG in SODIUM CHL 0.9% 234 ML IV SCH (09:52)
[2022-04-20] MEDS: SODIUM CHLOR 0.9% PF (SALINE LOCK) 10ML VIAL/SYR IV SCH ×2 (09:52→21:15)
[2022-04-20] MEDS ORDERED: levoFLOXacin 250MG 50 ML IV SCH (10:00)
[2022-04-20] MEDS: ACETAMINOPHEN 650 mg PER 20.3 mL UD GT PRN ×2 (11:07→23:33)
[2022-04-20] MEDS: fentaNYL Drip 2500mCg/250mlNS 250 ML IV SCH (11:07)
[2022-04-20] MEDS ORDERED: VANCOMYCIN 500 MG in D5W 5% 100 ML IV ONE (12:00)
[2022-04-20] MEDS: Nepro With Carb Steady 1 Liter Bottle GT SCH (13:53)
[2022-04-20] MEDS: ATORVASTATIN 20 MG TAB PO SCH (21:15)
[2022-04-21] VITALS (100 sets, daily range): BP systolic 101–149; BP diastolic 46–106
[2022-04-21 03:43] LABS: Basophils # (auto) 0.1 10 ^3/uL (0-0.2); Basophils % (auto) 0.6 % (0.0-2.0); Eosinophils # (auto) 0.2 10 ^3/uL (0-0.8); Eosinophils % (auto) 1.6 % (0.0-7.0); Hemoglobin 10.1 g/dL (13.5-17.5); Lymphocytes # (auto) 0.5 10 ^3/uL (0.4-5.4); Lymphocytes % (auto) 4.3 % (10.0-50.0); Mean Corpuscular Hemoglobin 33.6 pg (28.0-32.0); Mean Corpuscular Hgb Conc. 33.9 g/dL (32.0-36.0); Mean Corpuscular Volume 99.1 fL (80.0-100.0); Monocytes # (auto) 0.6 10 ^3/uL (0-1.3); Monocytes % (auto) 5.3 % (0.0-12.0); Neutrophils # (auto) 9.7 10 ^3/uL (1.6-8.6); Neutrophils % (auto) 88.2 % (37.0-80.0); Nucleated Red Blood Cells % 0.1 %; Red Blood Cells 3.02 10^6/uL (4.5-5.90); Red Cell Distribution Width 14.2 % (11.8-14.3)
[2022-04-21 04:06] LABS: BUN/Creatinine Ratio 11.9; Calcium 9.1 mg/dL (8.5-10.1)
[2022-04-21 04:14] LABS: Potassium 5.6 mmol/L (3.5-5.1)
[2022-04-21] MEDS: METOCLOPRAMIDE HCL 5MG/ml INJ 2ml VIAL IV SCH ×3 (05:09→21:45)
[2022-04-21] MEDS: SODIUM CHLOR 0.9% PF (SALINE LOCK) 10ML VIAL/SYR IV SCH ×2 (08:28→21:44)
[2022-04-21] MEDS: fentaNYL Drip 2500mCg/250mlNS 250 ML IV SCH (08:36)
[2022-04-21] MEDS: PANTOPRAZOLE 40 MG/10 ML VIAL INJ IV SCH (08:36)
[2022-04-21] MEDS: CLOPIDOGREL BISULFATE 75 MG TAB PO SCH (08:36)
[2022-04-21] MEDS: ASPirin 81 mg TAB PO SCH (08:36)
[2022-04-21] MEDS: B-COMPLEX W/ C & FOLIC ACID(NEPHROVITE TAB) PO SCH (08:36)
[2022-04-21] MEDS: NOREPINEPHRINE BITARTRATE 16 MG in SODIUM CHL 0.9% 234 ML IV SCH (08:37)
[2022-04-21] MEDS ORDERED: SODIUM CHL 0.9% 1000 ML BAG XX ONE (13:00)
[2022-04-21] MEDS: ATORVASTATIN 20 MG TAB PO SCH (21:44)
[2022-04-22] VITALS (77 sets, daily range): BP systolic 51–153; BP diastolic 54–87
[2022-04-22 03:38] LABS: Basophils # (auto) 0.1 10 ^3/uL (0-0.2); Eosinophils # (auto) 0.2 10 ^3/uL (0-0.8); Lymphocytes # (auto) 0.6 10 ^3/uL (0.4-5.4); Mean Corpuscular Hgb Conc. 35.3 g/dL (32.0-36.0); Neutrophils # (auto) 10.3 10 ^3/uL (1.6-8.6)
[2022-04-22 03:40] LABS: Basophils % (auto) 0.9 % (0.0-2.0); Eosinophils % (auto) 1.9 % (0.0-7.0); Hematocrit 29.9 % (41.0-53.0); Hemoglobin 10.5 g/dL (13.5-17.5); Lymphocytes % (auto) 5.1 % (10.0-50.0); Mean Corpuscular Hemoglobin 34.7 pg (28.0-32.0); Mean Corpuscular Volume 98.1 fL (80.0-100.0); Monocytes # (auto) 0.7 10 ^3/uL (0-1.3); Monocytes % (auto) 5.9 % (0.0-12.0); Neutrophils % (auto) 86.2 % (37.0-80.0); Nucleated Red Blood Cells % 0.3 %; Red Blood Cells 3.04 10^6/uL (4.5-5.90); Red Cell Distribution Width 14.5 % (11.8-14.3); White Blood Cell 11.9 10^3/uL (4.4-10.8)
[2022-04-22 05:06] LABS: BUN/Creatinine Ratio 12.5; Calcium 9.2 mg/dL (8.5-10.1)
[2022-04-22 05:12] LABS: Potassium 7.2 mmol/L (3.5-5.1)
[2022-04-22] MEDS: METOCLOPRAMIDE HCL 5MG/ml INJ 2ml VIAL IV SCH ×3 (06:10→22:01)
[2022-04-22] MEDS: ALBUMIN 25% 100 ML IV SCH ×2 (08:30→09:38)
[2022-04-22] MEDS: PANTOPRAZOLE 40 MG/10 ML VIAL INJ IV SCH (10:46)
[2022-04-22] MEDS: B-COMPLEX W/ C & FOLIC ACID(NEPHROVITE TAB) PO SCH (10:47)
[2022-04-22] MEDS: levoFLOXacin 500MG 100 ML IV SCH (10:47)
[2022-04-22] MEDS: SODIUM CHLOR 0.9% PF (SALINE LOCK) 10ML VIAL/SYR IV SCH ×2 (10:47→22:01)
[2022-04-22] MEDS: NOREPINEPHRINE BITARTRATE 16 MG in SODIUM CHL 0.9% 234 ML IV SCH (12:30)
[2022-04-22] MEDS ORDERED: ASPirin 81 mg TAB PO ONE (15:15)
[2022-04-22] MEDS: fentaNYL Drip 2500mCg/250mlNS 250 ML IV SCH (15:45)
[2022-04-22] MEDS: ATORVASTATIN 20 MG TAB PO SCH (22:01)
[2022-04-23] VITALS (63 sets, daily range): BP systolic 105–147; BP diastolic 25–78
[2022-04-23 03:59] LABS: BUN/Creatinine Ratio 11.7; Calcium 9.1 mg/dL (8.5-10.1); Potassium 4.7 mmol/L (3.5-5.1)
[2022-04-23] MEDS: METOCLOPRAMIDE HCL 5MG/ml INJ 2ml VIAL IV SCH ×3 (06:03→22:05)
[2022-04-23] MEDS: fentaNYL Drip 2500mCg/250mlNS 250 ML IV SCH (07:12)
[2022-04-23] MEDS: NOREPINEPHRINE BITARTRATE 16 MG in SODIUM CHL 0.9% 234 ML IV SCH (07:12)
[2022-04-23] MEDS: SODIUM CHLOR 0.9% PF (SALINE LOCK) 10ML VIAL/SYR IV SCH ×2 (08:44→22:03)
[2022-04-23] MEDS: PANTOPRAZOLE 40 MG/10 ML VIAL INJ IV SCH (08:48)
[2022-04-23] MEDS: B-COMPLEX W/ C & FOLIC ACID(NEPHROVITE TAB) PO SCH (08:49)
[2022-04-23] MEDS ORDERED: ASPirin 81 mg TAB PO SCH (10:00)
[2022-04-23] MEDS ORDERED: SODIUM CHL 0.9% 1000 ML BAG XX ONE (11:15)
[2022-04-23 11:48] LABS: Hematocrit 27.9 % (41.0-53.0); Hemoglobin 9.3 g/dL (13.5-17.5)
[2022-04-23 20:18] LABS: INR 1.16 (0.9-1.15)
[2022-04-23] MEDS ORDERED: EPOETIN ALFA-EPBX 4,000 UNIT/ML VIAL SC ONE (21:00)
[2022-04-23] MEDS: ATORVASTATIN 20 MG TAB PO SCH (22:04)
[2022-04-24] VITALS (33 sets, daily range): BP systolic 97–163; BP diastolic 19–79
[2022-04-24 04:35] LABS: Basophils # (auto) 0.1 10 ^3/uL (0-0.2); Eosinophils # (auto) 0.3 10 ^3/uL (0-0.8); Eosinophils % (auto) 2.5 % (0.0-7.0); Lymphocytes # (auto) 0.5 10 ^3/uL (0.4-5.4); Lymphocytes % (auto) 4.2 % (10.0-50.0); Mean Corpuscular Hgb Conc. 33.5 g/dL (32.0-36.0); Mean Corpuscular Volume 98.6 fL (80.0-100.0); Monocytes # (auto) 0.6 10 ^3/uL (0-1.3); Monocytes % (auto) 5.3 % (0.0-12.0); Neutrophils # (auto) 9.6 10 ^3/uL (1.6-8.6); Red Blood Cells 3.04 10^6/uL (4.5-5.90); Red Cell Distribution Width 14.5 % (11.8-14.3)
[2022-04-24 04:54] LABS: Albumin 2.7 g/dL (3.4-5.0); BUN/Creatinine Ratio 12.8; Calcium 9.2 mg/dL (8.5-10.1)
[2022-04-24 05:01] LABS: Bilirubin, Total 0.8 mg/dL (0.2-1.0); Total Protein 8.4 g/dL (6.4-8.2)
[2022-04-24 05:23] LABS: Potassium 5.9 mmol/L (3.5-5.1)
[2022-04-24] MEDS: METOCLOPRAMIDE HCL 5MG/ml INJ 2ml VIAL IV SCH ×3 (05:45→22:22)
[2022-04-24] MEDS ORDERED: ALBUMIN 25% 100 ML IV PRN (09:45)
[2022-04-24] MEDS: B-COMPLEX W/ C & FOLIC ACID(NEPHROVITE TAB) PO SCH (10:10)
[2022-04-24] MEDS: levoFLOXacin 500MG 100 ML IV SCH (10:11)
[2022-04-24] MEDS: PANTOPRAZOLE 40 MG/10 ML VIAL INJ IV SCH (10:11)
[2022-04-24] MEDS: SODIUM CHLOR 0.9% PF (SALINE LOCK) 10ML VIAL/SYR IV SCH ×2 (10:11→22:00)
[2022-04-24] MEDS ORDERED: HEPARIN 1,000 UNITS/ml 1ML VIAL ONE (12:37)
[2022-04-24] MEDS ORDERED: SODIUM CHL 0.9% 1000 ML BAG XX ONE (12:45)
[2022-04-24] MEDS ORDERED: VANCOMYCIN 500 MG in D5W 5% 100 ML IV ONE (16:00)
[2022-04-24] MEDS: ACETAMINOPHEN 650 mg PER 20.3 mL UD GT PRN (16:11)
[2022-04-24] MEDS ORDERED: EPOETIN ALFA-EPBX 4,000 UNIT/ML VIAL SC ONE (21:00)
[2022-04-24] MEDS: ATORVASTATIN 20 MG TAB PO SCH (22:22)
[2022-04-24] MEDS: NOREPINEPHRINE BITARTRATE 16 MG in SODIUM CHL 0.9% 234 ML IV SCH (22:24)
[2022-04-25] VITALS (31 sets, daily range): BP systolic 95–144; BP diastolic 28–70
[2022-04-25 04:40] LABS: BUN/Creatinine Ratio 12.3; Potassium 5.4 mmol/L (3.5-5.1)
[2022-04-25] MEDS: METOCLOPRAMIDE HCL 5MG/ml INJ 2ml VIAL IV SCH ×3 (05:34→21:53)
[2022-04-25] MEDS: PANTOPRAZOLE 40 MG/10 ML VIAL INJ IV SCH (09:55)
[2022-04-25] MEDS: SODIUM CHLOR 0.9% PF (SALINE LOCK) 10ML VIAL/SYR IV SCH ×2 (09:55→21:53)
[2022-04-25] MEDS: B-COMPLEX W/ C & FOLIC ACID(NEPHROVITE TAB) PO SCH (09:55)
[2022-04-25] MEDS ORDERED: LORazepam 2MG/ML-1ML VIAL IV PRN (17:30)
[2022-04-25] MEDS ORDERED: MORPHINE SULFATE INJ 2 MG/ml SYRG IV PRN (17:30)
[2022-04-25] MEDS: ATORVASTATIN 20 MG TAB PO SCH (21:53)
[2022-04-26] VITALS (15 sets, daily range): BP systolic 89–142; BP diastolic 31–69
[2022-04-26 04:33] LABS: Calcium 9.8 mg/dL (8.5-10.1); Magnesium 2.8 mg/dL (1.6-2.6)
[2022-04-26 04:34] LABS: Basophils # (auto) 0.1 10 ^3/uL (0-0.2); Basophils % (auto) 1.2 % (0.0-2.0); Eosinophils # (auto) 0.4 10 ^3/uL (0-0.8); Eosinophils % (auto) 3.8 % (0.0-7.0); Hematocrit 29.4 % (41.0-53.0); Hemoglobin 9.9 g/dL (13.5-17.5); Lymphocytes # (auto) 0.5 10 ^3/uL (0.4-5.4); Lymphocytes % (auto) 4.8 % (10.0-50.0); Mean Corpuscular Hemoglobin 33.2 pg (28.0-32.0); Mean Corpuscular Hgb Conc. 33.7 g/dL (32.0-36.0); Mean Corpuscular Volume 98.6 fL (80.0-100.0); Monocytes # (auto) 0.8 10 ^3/uL (0-1.3); Monocytes % (auto) 7.5 % (0.0-12.0); Neutrophils # (auto) 9.2 10 ^3/uL (1.6-8.6); Neutrophils % (auto) 82.7 % (37.0-80.0); Red Blood Cells 2.98 10^6/uL (4.5-5.90); Red Cell Distribution Width 14.5 % (11.8-14.3); White Blood Cell 11.1 10^3/uL (4.4-10.8)
[2022-04-26 04:35] LABS: BUN/Creatinine Ratio 12.2
[2022-04-26 04:38] LABS: Potassium 6.2 mmol/L (3.5-5.1)
[2022-04-26] MEDS: fentaNYL Drip 2500mCg/250mlNS 250 ML IV SCH (05:15)
[2022-04-26] MEDS: NOREPINEPHRINE BITARTRATE 16 MG in SODIUM CHL 0.9% 234 ML IV SCH (05:16)
[2022-04-26] MEDS: METOCLOPRAMIDE HCL 5MG/ml INJ 2ml VIAL IV SCH (05:38)
[2022-04-26] MEDS ORDERED: SODIUM CHL 0.9% 1000 ML BAG XX ONE (07:00)
[2022-04-26] MEDS ORDERED: HYDROmorphone HCL 2 MG/ML VL/or syr IV PRN (09:30)
== END 2022-04-26 14:10 | DRG 711 ==
LOC: ER 17:33 → EDBD 17:33 → ER 19:43 → TELE 21:17 → ICU WEST 23:10 → TELE-WESTW 04-10 21:14 → ICU WEST 04-11 15:12 → OVERFLOW 04-15 16:19 → ICU WEST 04-15 16:29
PROVIDERS: ADMIT Internal Medicine Cardiovascular Disease; ATTEND Internal Medicine
PROC: 02703ZZ Dilation of Coronary Artery, One Artery, Percutaneous Approach (ICD-10-PCS; 2022-04-08)
PROC: 4A023N7 Measurement of Cardiac Sampling and Pressure, Left Heart, Percutaneous Approach (ICD-10-PCS; 2022-04-08)
PROC: B2111ZZ Fluoroscopy of Multiple Coronary Arteries using Low Osmolar Contrast (ICD-10-PCS; 2022-04-08)
PROC: B2151ZZ Fluoroscopy of Left Heart using Low Osmolar Contrast (ICD-10-PCS; 2022-04-08)
PROC: 02C03Z7 Extirpation of Matter from Coronary Artery, One Artery, Orbital Atherectomy Technique, Percutaneous Approach (ICD-10-PCS; 2022-04-08)
PROC: 05HA33Z Insertion of Infusion Device into Left Brachial Vein, Percutaneous Approach (ICD-10-PCS; 2022-04-11)
PROC: B54NZZA Ultrasonography of Left Upper Extremity Veins, Guidance (ICD-10-PCS; 2022-04-11)
PROC: 5A1D70Z Performance of Urinary Filtration, Intermittent, Less than 6 Hours Per Day (ICD-10-PCS; 2022-04-11)
PROC: 5A1955Z Respiratory Ventilation, Greater than 96 Consecutive Hours (ICD-10-PCS; principal; 2022-04-12)
PROC: 0BH17EZ Insertion of Endotracheal Airway into Trachea, Via Natural or Artificial Opening (ICD-10-PCS; 2022-04-12)
PROC: 02HV33Z Insertion of Infusion Device into Superior Vena Cava, Percutaneous Approach (ICD-10-PCS; 2022-04-12)
PROC: B548ZZA Ultrasonography of Superior Vena Cava, Guidance (ICD-10-PCS; 2022-04-12)
PROC: 5A1D70Z Performance of Urinary Filtration, Intermittent, Less than 6 Hours Per Day (ICD-10-PCS; 2022-04-13)
PROC: 5A1D70Z Performance of Urinary Filtration, Intermittent, Less than 6 Hours Per Day (ICD-10-PCS; 2022-04-15)
PROC: 05PYX3Z Removal of Infusion Device from Upper Vein, External Approach (ICD-10-PCS; 2022-04-16)
PROC: 5A1D70Z Performance of Urinary Filtration, Intermittent, Less than 6 Hours Per Day (ICD-10-PCS; 2022-04-17)
PROC: 5A1D70Z Performance of Urinary Filtration, Intermittent, Less than 6 Hours Per Day (ICD-10-PCS; 2022-04-20)
PROC: 5A1D70Z Performance of Urinary Filtration, Intermittent, Less than 6 Hours Per Day (ICD-10-PCS; 2022-04-22)
PROC: 5A1D70Z Performance of Urinary Filtration, Intermittent, Less than 6 Hours Per Day (ICD-10-PCS; 2022-04-24)
DX: T80.211A Bloodstream infection due to central venous catheter, initial encounter (principal); A41.02 Sepsis due to Methicillin resistant Staphylococcus aureus; J96.21 Acute and chronic respiratory failure with hypoxia; R65.21 Severe sepsis with septic shock; I63.9 Cerebral infarction, unspecified; E87.1 Hypo-osmolality and hyponatremia; D63.1 Anemia in chronic kidney disease; J18.9 Pneumonia, unspecified organism; E44.0 Moderate protein-calorie malnutrition; I21.3 ST elevation (STEMI) myocardial infarction of unspecified site; N18.6 End stage renal disease; D69.6 Thrombocytopenia, unspecified; G93.1 Anoxic brain damage, not elsewhere classified; I45.9 Conduction disorder, unspecified; E03.9 Hypothyroidism, unspecified; E78.5 Hyperlipidemia, unspecified; J44.9 Chronic obstructive pulmonary disease, unspecified; I13.2 Hypertensive heart and chronic kidney disease with heart failure and with stage 5 chronic kidney disease, or end stage renal disease; F32.A Depression, unspecified; G62.9 Polyneuropathy, unspecified; E87.5 Hyperkalemia; E87.6 Hypokalemia; I25.10 Atherosclerotic heart disease of native coronary artery without angina pectoris; E66.9 Obesity, unspecified; E11.22 Type 2 diabetes mellitus with diabetic chronic kidney disease; F20.9 Schizophrenia, unspecified; Z20.822 Contact with and (suspected) exposure to COVID-19; F41.9 Anxiety disorder, unspecified; I50.9 Heart failure, unspecified; Y84.8 Other medical procedures as the cause of abnormal reaction of the patient, or of later complication, without mention of misadventure at the time of the procedure; F09 Unspecified mental disorder due to known physiological condition; Z79.82 Long term (current) use of aspirin; Z68.30 Body mass index [BMI] 30.0-30.9, adult; Z51.5 Encounter for palliative care; Z95.5 Presence of coronary angioplasty implant and graft; Z79.899 Other long term (current) drug therapy; Z82.3 Family history of stroke; Z82.49 Family history of ischemic heart disease and other diseases of the circulatory system; Z83.3 Family history of diabetes mellitus; Z99.2 Dependence on renal dialysis; Z79.02 Long term (current) use of antithrombotics/antiplatelets; Z88.5 Allergy status to narcotic agent; Z88.2 Allergy status to sulfonamides; Z90.49 Acquired absence of other specified parts of digestive tract; Y92.89 Other specified places as the place of occurrence of the external cause; Z79.4 Long term (current) use of insulin
CPT/HCPCS: 36415; 36569; 36600; 70450; 71045; 71250; 74176; 80048; 80053; 80061; 80202; 82140; 82728; 82805; 82962; 83036; 83540; 83550; 83605; 83735; 84100; 84443; 84478; 84484; 85014; 85018; 85025; 85610; 85652; 85730; 86850; 86900; 86901; 87040; 87070; 87075; 87076; 87077; 87081; 87147; 87186; 87205; 87340; 90935; 92924; 93005; 93306; 93458; 93886; 94003; 95819; 96365; 96376; 99152; 99153; 99291; A4605; A4618; C1724; C1769; C1887; C9113; G0378; J0153; J0330; J1100; J1642; J1885; J1956; J2001; J2185; J2250; J3490; J7060; J7131; P9047; Q9967